=== PATIENT | female | born 1965 | race Caucasian/White ===

== ENCOUNTER 2016-03-25 12:35 | Inpatient (IN) | payer MEDICARE, BC ==
[2016-03-25] MEDS ORDERED: ACETAMINOPHEN IV (For NPO) 1,000 MG in EMPTY BAG 1 BAG IVPB STA (12:59)
[2016-03-25] MEDS ORDERED: RX INFO: IV CONTRAST WAS GIVEN 1 EACH MISC MISCELLANE PRN ×2 (13:00→13:05)
[2016-03-25] MEDS ORDERED: ONDANSETRON 4 MG/2 ML VIAL IVP STA (13:01)
[2016-03-25] MEDS ORDERED: FAMOTIDINE 20 MG/2 ML VIAL IV STA (13:01)
--- NOTE | 2016-03-25 13:05 | ED ---
General Adult HPI - General Chief complaint: Chest Pain Stated complaint: Chest Pain Time Seen by Provider: 03/25/16 12:55 Source: patient, RN notes reviewed Mode of arrival: wheelchair Limitations: no limitations - History of Present Illness Initial comments: Patient is a pleasant 51-year-old female presenting to the emergency Department with abdominal discomfort. Symptoms have progressed over the past 3 days. Patient has noticed low-grade fevers at home. Patient has had nausea with several episodes of emesis. Discomfort is mostly in the epigastric region. Patient has had similar symptoms previously associated with diverticulitis. Patient states she is now having some discomfort radiating up towards her chest. Patient states this also occurred last time with diverticulitis. - Related Data Home Medications Medication Instructions Recorded Confirmed Diazepam [Valium] 5 mg PO BID PRN 08/28/13 03/25/16 oxyCODONE-APAP 10-325MG [Percocet 1 tab PO TID PRN 02/08/14 03/25/16 10-325 mg] Cetirizine HCl [Zyrtec] 10 mg PO DAILY PRN 10/04/14 03/25/16 Fluticasone Propionate [Flonase 1 spray EA NOSTRIL DAILY PRN 10/04/14 03/25/16 Allergy Relief] cloNIDine HCL 0.3 mg PO TID 08/19/15 03/25/16 Olopatadine HCl [Patanol] 1 drop BOTH EYES BID 10/24/15 03/25/16 Vortioxetine Hydrobromide 10 mg PO DAILY 10/24/15 03/25/16 [Trintellix] Morphine Sulfate ER [Ms Contin] 60 mg PO BID 03/25/16 03/25/16 Allergies Allergy/AdvReac Type Severity Reaction Status Date / Time erythromycin base Allergy Rash/Hives Verified 03/25/16 13:14 [Erythromycin Base] Penicillins Allergy Rash/Hives Verified 03/25/16 13:14 Review of Systems ROS Statement: Those systems with pertinent positive or pertinent negative responses have been documented in the HPI. ROS Other: All systems not noted in ROS Statement are negative. Constitutional: Reports: fever Eyes: Denies: eye pain ENT: Denies: ear pain Respiratory: Denies: cough Cardiovascular: Reports: chest pain Endocrine: Denies: fatigue Gastrointestinal: Reports: abdominal pain, nausea, vomiting Genitourinary: Denies: dysuria Musculoskeletal: Denies: back pain Skin: Denies: rash Neurological: Denies: headache Psychiatric: Reports: anxiety Past Medical History Past Medical History: Cancer, Hypertension Additional Past Medical History / Comment(s): migraines, chronic back pain, hx uterine cancer, colon polyp removal, diverticulitis History of Any Multi-Drug Resistant Organisms: C-DIFF Date of last positivie culture/infection: MDRO Source:: stool Past Surgical History: Adenoidectomy, Appendectomy, Section, Cholecystectomy, Hysterectomy, Tonsillectomy Additional Past Surgical History / Comment(s): eye surgery bilateral for saliphingooophtomy Past Anesthesia/Blood Transfusion Reactions: Postoperative Nausea & Vomiting ( PONV) Past Psychological History: Anxiety, Depression, Panic Disorder, PTSD Additional Psychological History / Comment(s): Pt.'s committed suicide about 3 years ago, pt. found him and states, "I have good and bad days." Smoking Status: Former smoker Past Alcohol Use History: None Reported Additional Past Alcohol Use History / Comment(s): smoked about 9 years socially <1/2ppd Past Drug Use History: None Reported - Past Family History Father Family Medical History: Cancer Mother Family Medical History: CVA/TIA Brother(s) Family Medical History: No Reported History (Patient has 3 brothers with diagnosis of small bowel obstruction.) Sister(s) Family Medical History: No Reported History (One sister no major medical problems.) General Exam Limitations: no limitations General appearance: alert Head exam: Present: atraumatic Eye exam: Present: normal appearance, PERRL ENT exam: Present: normal oropharynx Neck exam: Present: normal inspection Respiratory exam: Present: normal lung sounds bilaterally Cardiovascular Exam: Present: regular rate, normal rhythm Expanded Peripheral pulses: 2+: Dorsalis Pedis (R), Dorsalis Pedis (L) GI/Abdominal exam: Present: soft, tenderness (Mild to moderate epigastric tenderness. Minimal left lower quadrant tenderness.), normal bowel sounds. Absent: distended, guarding, rebound, rigid, pulsatile mass Extremities exam: Present: normal inspection. Absent: pedal edema, calf tenderness Neurological exam: Present: alert Psychiatric exam: Present: anxious Skin exam: Absent: rash Course Vital Signs 03/25/16 03/25/16 03/25/16 12:46 12:56 13:46 Temperature 100.1 F H Pulse Rate 104 H 90 Pulse Rate [ 94 Emergency Room Physician ] Respiratory 24 22 20 Rate Blood Pressure 221/100 231/112 O2 Sat by Pulse 97 98 Oximetry 03/25/16 03/25/16 03/25/16 14:56 15:20 15:47 Temperature 98.3 F Pulse Rate 104 H 78 88 Pulse Rate [ Emergency Room Physician ] Respiratory 20 18 18 Rate Blood Pressure 213/117 224/100 204/112 O2 Sat by Pulse 98 97 96 Oximetry 03/25/16 16:13 Temperature Pulse Rate 97 Pulse Rate [ Emergency Room Physician ] Respiratory 16 Rate Blood Pressure 217/102 O2 Sat by Pulse 97 Oximetry EKG Findings - EKG Comments: EKG Findings:: Normal sinus rhythm at 96 with sinus arrhythmia. MN 140. QRS 78. QT 374. QTC 472. Normal axis. Normal QRS. Normal ST-T. Medical Decision Making - Medical Decision Making Patient has no source of infection and therefore does not meet sepsis criteria. Patient has continued discomfort. Patient has been vomiting and unable to take her medications. Patient likely has rebound hypertension. Patient remains hypertensive despite IV medication and transdermal Catapres. Patient will need further blood pressure control and IV fluids. Dr. Worrell been paged for admission for Dr. Jha. - Lab Data Result diagrams: 03/25/16 13:30 03/25/16 13:30 Lab Results 03/25/16 03/25/16 03/25/16 Range/Units 12:54 13:17 13:30 WBC (3.8-10.6) k/uL RBC (3.80-5.40) m/uL Hgb (11.4-16.0) gm/dL Hct (34.0-46.0) % MCV (80.0-100.0) fL MCH (25.0-35.0) pg MCHC (31.0-37.0) g/dL RDW (11.5-15.5) % Plt Count (150-450) k/uL Neutrophils % % Lymphocytes % % Monocytes % % Eosinophils % % Basophils % % Neutrophils # (1.3-7.7) k/uL Lymphocytes # (1.0-4.8) k/uL Monocytes # (0-1.0) k/uL Eosinophils # (0-0.7) k/uL Basophils # (0-0.2) k/uL PT (9.0-12.0) sec INR (<1.1) APTT (22.0-30.0) sec Sodium 147 H (137-145) mmol/L Potassium 5.2 H (3.5-5.1) mmol/L Chloride 106 (98-107) mmol/L Carbon Dioxide 21 L (22-30) mmol/L Anion Gap 20 mmol/L BUN 5 L (7-17) mg/dL Creatinine 0.78 (0.52-1.04) mg/dL Est GFR (MDRD) Af Amer >60 (>60 ml/min/1.73 sqM) Est GFR (MDRD) Non-Af >60 (>60 ml/min/1.73 sqM) Glucose 166 H (74-99) mg/dL POC Glucose (mg/dL) 155 H 165 H (75-99) mg/dL POC Glu Manufacturing Support Engineer Avi Richardson Brittany, A Plasma Lactic Acid Carlo (0.7-2.0) mmol/L Calcium 10.4 H (8.4-10.2) mg/dL Total Bilirubin 1.0 (0.2-1.3) mg/dL AST 79 H (14-36) U/L ALT 95 H (9-52) U/L Alkaline Phosphatase 113 (38-126) U/L Total Creatine Kinase (30-135) U/L CK-MB (CK-2) (0.0-2.4) ng/mL CK-MB (CK-2) Rel Index Troponin I (0.000-0.034) ng/mL Total Protein 8.5 H (6.3-8.2) g/dL Albumin 4.9 (3.5-5.0) g/dL Amylase 133 H (30-110) U/L Lipase 89 (23-300) U/L Cortisol 47 ug/dL Urine Color Urine Appearance (Clear) Urine pH (5.0-8.0) Ur Specific [place] (1.001-1.035) Urine Protein (Negative) Urine Glucose (UA) (Negative) Urine Ketones (Negative) Urine Blood (Negative) Urine Nitrate (Negative) Urine Bilirubin (Negative) Urine Urobilinogen (<2.0) mg/dL Ur Leukocyte Esterase (Negative) Urine RBC (0-5) /hpf Urine WBC (0-5) /hpf Ur Squamous Epith Cells (0-4) /hpf Hyaline Casts (0-2) /lpf Urine Mucus (None) /hpf 03/25/16 03/25/16 03/25/16 Range/Units 13:30 13:30 13:30 WBC 10.3 (3.8-10.6) k/uL RBC 5.23 (3.80-5.40) m/uL Hgb 14.8 (11.4-16.0) gm/dL Hct 46.1 H (34.0-46.0) % MCV 88.1 (80.0-100.0) fL MCH 28.2 (25.0-35.0) pg MCHC 32.1 (31.0-37.0) g/dL RDW 14.9 (11.5-15.5) % Plt Count 417 (150-450) k/uL Neutrophils % 83 % Lymphocytes % 11 % Monocytes % 4 % Eosinophils % 1 % Basophils % 1 % Neutrophils # 8.6 H (1.3-7.7) k/uL Lymphocytes # 1.1 (1.0-4.8) k/uL Monocytes # 0.4 (0-1.0) k/uL Eosinophils # 0.1 (0-0.7) k/uL Basophils # 0.1 (0-0.2) k/uL PT (9.0-12.0) sec INR (<1.1) APTT (22.0-30.0) sec Sodium (137-145) mmol/L Potassium (3.5-5.1) mmol/L Chloride (98-107) mmol/L Carbon Dioxide (22-30) mmol/L Anion Gap mmol/L BUN (7-17) mg/dL Creatinine (0.52-1.04) mg/dL Est GFR (MDRD) Af Amer (>60 ml/min/1.73 sqM) Est GFR (MDRD) Non-Af (>60 ml/min/1.73 sqM) Glucose (74-99) mg/dL POC Glucose (mg/dL) (75-99) mg/dL POC Glu Manufacturing Support Engineer ID Plasma Lactic Acid Carlo 3.4 H* (0.7-2.0) mmol/L Calcium (8.4-10.2) mg/dL Total Bilirubin (0.2-1.3) mg/dL AST (14-36) U/L ALT (9-52) U/L Alkaline Phosphatase (38-126) U/L Total Creatine Kinase 33 (30-135) U/L CK-MB (CK-2) <0.2 (0.0-2.4) ng/mL CK-MB (CK-2) Rel Index Troponin I <0.012 (0.000-0.034) ng/mL Total Protein (6.3-8.2) g/dL Albumin (3.5-5.0) g/dL Amylase (30-110) U/L Lipase (23-300) U/L Cortisol ug/dL Urine Color Urine Appearance (Clear) Urine pH (5.0-8.0) Ur Specific [place] (1.001-1.035) Urine Protein (Negative) Urine Glucose (UA) (Negative) Urine Ketones (Negative) Urine Blood (Negative) Urine Nitrate (Negative) Urine Bilirubin (Negative) Urine Urobilinogen (<2.0) mg/dL Ur Leukocyte Esterase (Negative) Urine RBC (0-5) /hpf Urine WBC (0-5) /hpf Ur Squamous Epith Cells (0-4) /hpf Hyaline Casts (0-2) /lpf Urine Mucus (None) /hpf 03/25/16 03/25/16 Range/Units 13:30 15:15 WBC (3.8-10.6) k/uL RBC (3.80-5.40) m/uL Hgb (11.4-16.0) gm/dL Hct (34.0-46.0) % MCV (80.0-100.0) fL MCH (25.0-35.0) pg MCHC (31.0-37.0) g/dL RDW (11.5-15.5) % Plt Count (150-450) k/uL Neutrophils % % Lymphocytes % % Monocytes % % Eosinophils % % Basophils % % Neutrophils # (1.3-7.7) k/uL Lymphocytes # (1.0-4.8) k/uL Monocytes # (0-1.0) k/uL Eosinophils # (0-0.7) k/uL Basophils # (0-0.2) k/uL PT 10.7 (9.0-12.0) sec INR 1.1 (<1.1) APTT 21.0 L (22.0-30.0) sec Sodium (137-145) mmol/L Potassium (3.5-5.1) mmol/L Chloride (98-107) mmol/L Carbon Dioxide (22-30) mmol/L Anion Gap mmol/L BUN (7-17) mg/dL Creatinine (0.52-1.04) mg/dL Est GFR (MDRD) Af Amer (>60 ml/min/1.73 sqM) Est GFR (MDRD) Non-Af (>60 ml/min/1.73 sqM) Glucose (74-99) mg/dL POC Glucose (mg/dL) (75-99) mg/dL POC Glu Manufacturing Support Engineer ID Plasma Lactic Acid Carlo (0.7-2.0) mmol/L Calcium (8.4-10.2) mg/dL Total Bilirubin (0.2-1.3) mg/dL AST (14-36) U/L ALT (9-52) U/L Alkaline Phosphatase (38-126) U/L Total Creatine Kinase (30-135) U/L CK-MB (CK-2) (0.0-2.4) ng/mL CK-MB (CK-2) Rel Index Troponin I (0.000-0.034) ng/mL Total Protein (6.3-8.2) g/dL Albumin (3.5-5.0) g/dL Amylase (30-110) U/L Lipase (23-300) U/L Cortisol ug/dL Urine Color Yellow Urine Appearance Clear (Clear) Urine pH 7.5 (5.0-8.0) Ur Specific [place] 1.036 H (1.001-1.035) Urine Protein 2+ H (Negative) Urine Glucose (UA) 1+ H (Negative) Urine Ketones 1+ H (Negative) Urine Blood Negative (Negative) Urine Nitrate Negative (Negative) Urine Bilirubin Negative (Negative) Urine Urobilinogen <2.0 (<2.0) mg/dL Ur Leukocyte Esterase Negative (Negative) Urine RBC 1 (0-5) /hpf Urine WBC 1 (0-5) /hpf Ur Squamous Epith Cells 1 (0-4) /hpf Hyaline Casts 4 H (0-2) /lpf Urine Mucus Rare H (None) /hpf Critical Care Time Critical Care Time: Yes Total Critical Care Time: 32 Disposition Clinical Impression: Abdominal pain, Intractable vomiting, Fever, Hypertensive urgency Disposition: ADMITTED IP TO THIS HOSP
[2016-03-25 13:22] LABS: Glucose,Whole Blood 165 mg/dL (75-99)
[2016-03-25] MEDS: SODIUM CHLORIDE 0.9% 500 ML IV SCH ×2 (13:22→14:58)
[2016-03-25] MEDS: MORPHINE SULFATE 4 MG/ML SYRINGE IV STA ×2 (13:27→15:22)
[2016-03-25 13:43] LABS: Basophils # (A) 0.1 k/uL (0-0.2); Basophils % (A) 1 %; CH 29.5; CHCM 33.7; Eosinophils # (A) 0.1 k/uL (0-0.7); Eosinophils % (A) 1 %; HCT 46.1 % (34.0-46.0); HDW 3.04; HGB 14.8 gm/dL (11.4-16.0); Luc # (Auto) 0.08; Luc % (Auto) 1; Lymphocytes # (A) 1.1 k/uL (1.0-4.8); Lymphocytes % (A) 11 %; MCH 28.2 pg (25.0-35.0); MCHC 32.1 g/dL (31.0-37.0); MCV 88.1 fL (80.0-100.0); Mean Platelet Volume 7.6; Monocytes # (A) 0.4 k/uL (0-1.0); Monocytes % (A) 4 %; Neutrophils # (A) 8.6 k/uL (1.3-7.7); Neutrophils % (A) 83 %; RBC 5.23 m/uL (3.80-5.40); RDW 14.9 % (11.5-15.5); WBC 10.3 k/uL (3.8-10.6); WBC (Perox) 9.76
[2016-03-25] MEDS ORDERED: LABETALOL SYRINGE 5 MG/ML IVP STA ×2 (13:46→16:15)
[2016-03-25 14:00] LABS: INR 1.1 (<1.1); Prothrombin Time 10.7 sec (9.0-12.0)
[2016-03-25] MEDS ORDERED: cloNIDine 0.3 MG/24HR PATCH 1 PATCH PATCH TRANSDERM SCH (14:00)
[2016-03-25 14:13] LABS: Creatine Kinase 33 U/L (30-135)
[2016-03-25 14:18] LABS: ALT 95 U/L (9-52); AST 79 U/L (14-36); Alkaline Phosphatase 113 U/L (38-126); Amylase 133 U/L (30-110); Anion Gap 20 mmol/L; Blood Urea Nitrogen 5 mg/dL (7-17); Calcium 10.4 mg/dL (8.4-10.2); Carbon Dioxide 21 mmol/L (22-30); Chloride 106 mmol/L (98-107); Glucose 166 mg/dL (74-99); Non-African American GFR(MDRD) >60 (>60 ml/min/1.73 sqM); Sodium 147 mmol/L (137-145); Total Protein 8.5 g/dL (6.3-8.2)
[2016-03-25 14:25] LABS: Creatine Kinase MB <0.2 ng/mL (0.0-2.4); Troponin I <0.012 ng/mL (0.000-0.034)
[2016-03-25 14:26] LABS: Potassium 5.2 mmol/L (3.5-5.1)
--- NOTE | 2016-03-25 14:58 | CT ---
EXAMINATION TYPE: CT angio chest DATE OF EXAM: 03/25/2016 2:45 PM COMPARISON: Previous study dated 02/08/2014. HISTORY: SOB, diverticulitis CT DLP: 2355 mGycm Automated exposure control for dose reduction was used. CONTRAST: CTA scan of the thorax is performed with IV Contrast, patient injected with 100 ml mL of Omnipaque 35 0, pulmonary embolism protocol. . FINDINGS: There is some minimal scarring or atelectasis at the left lung base as well as the left lingula. Visu alized portions of the lungs are otherwise unremarkable. There is no significant axillary or internal mammary adenopathy. There is a stable, 2.6 cm right para tracheal lymph node as well as some smaller mediastinal lymph nodes, unchanged from previous. Has dev eloped a 7.3 mm right hilar lymph node. There is no pleural or pericardial fluid. The heart is mildly enlarged. There is no evidence of pulmonary embolus. There is a small hiatal hernia. There is hypertrophic spondylosis within the spine. IMPRESSION: 1. THIS EXAMINATION IS NEGATIVE FOR PULMONARY EMBOLUS. 2. STABLE MEDIASTINAL ADENOPATHY. 3. SMALL, 7.3 MM RIGHT HILAR LYMPH NODE WHICH IS A NEW FINDING. 4. DEGENERATIVE CHANGES WITHIN THE SPINE. 5. MILD CARDIOMEGALY. 6. SMALL HIATAL HERNIA.
[2016-03-25] MEDS: METOCLOPRAMIDE 5 MG/ML 2 ML VIAL IVP STA (15:00)
--- NOTE | 2016-03-25 15:02 | CT ---
EXAMINATION TYPE: CT abdomen pelvis w con DATE OF EXAM: 03/25/2016 2:44 PM COMPARISON: Prior CT abdomen pelvis 22 January 2016 HISTORY: SOB, diverticulitis CT DLP: 2355 mGycm Automated exposure control for dose reduction was used. TECHNIQUE: Helical acquisition of images from the lung bases through the pelvis have been completed. CONTRAST: Performed without Oral Contrast and with IV Contrast, patient injected with 100 mL of Omnipaque 350. FINDINGS: LUNG BASES: No significant abnormality is appreciated. AORTA: No significant abnormality is appreciated. LIVER/GB: The liver shows low attenuation likely due to fatty infiltration, patient is post cholecyst ectomy. PANCREAS: No significant abnormality is seen. SPLEEN: No significant abnormality is seen. ADRENALS: No significant abnormality is seen. KIDNEYS: No significant abnormality is seen. Renal vein collar is present. REPRODUCTIVE ORGANS: Uterus and adnexal structures are absent. BOWEL: No evident obstruction. Diverticular changes associated with the sigmoid colon. Patient is po st appendectomy. There is a small umbilical hernia containing fat. FREE AIR: No Free Air visible ASCITES: None visible. PELVIC ADENOPATHY: None visualized. RETROPERITONEAL ADENOPATHY: No Retroperitoneal Adenopathy visible. URINARY BLADDER: No significant abnormality is seen. OSSEOUS STRUCTURES: Degenerative disc changes in the visualized spine. There is some associated face t arthropathy. IMPRESSION: DIVERTICULOSIS. FINDINGS IN THE LIVER IS DESCRIBED, POSTOP CHANGE.
[2016-03-25 15:06] LABS: Glucose,Whole Blood 155 mg/dL (75-99)
[2016-03-25] MEDS ORDERED: SODIUM CHLORIDE 0.9% 1,000 ML IV STA (15:17)
[2016-03-25 15:32] LABS: Appearance,Urine Clear (Clear); Bilirubin,Urine Negative (Negative); Glucose,Urine (UA) 1+ (Negative); Ketones,Urine 1+ (Negative); Leukocyte Esterase,Urine Negative (Negative); Mucus,Urine Rare /hpf; Nitrite,Urine Negative (Negative); PH, Urine 7.5 (5.0-8.0); Particle Count 1616; Protein,Urine 2+ (Negative); RBC,Urine 1 /hpf (0-5); Specific Gravity,Urine 1.036 (1.001-1.035); Squamous Epithelial Cell,Urine 1 /hpf (0-4); UA Billing (MACRO vs. MICRO) MICRO; Urobilinogen,Urine <2.0 mg/dL (<2.0); WBC,Urine 1 /hpf (0-5)
[2016-03-25] MEDS ORDERED: NALOXONE 0.4 MG/ML 1 ML VIAL IV PRN (16:46)
[2016-03-25] MEDS ORDERED: ENALAPRILAT 1.25 MG/ML 1 ML VIAL IVP STA (16:48)
[2016-03-25 17:56] LABS: Creatine Kinase 28 U/L (30-135)
[2016-03-25 18:06] LABS: Creatine Kinase MB <0.2 ng/mL (0.0-2.4); Troponin I <0.012 ng/mL (0.000-0.034)
[2016-03-25] MEDS: MORPHINE SULFATE 4 MG/ML SYRINGE IV PRN ×2 (18:16→22:15)
[2016-03-25] MEDS: PANTOPRAZOLE 40 MG/10 ML VIAL IV SCH (18:18)
[2016-03-25] MEDS ORDERED: hydrALAZINE HCL 20 MG/ML 1 ML VIAL IVP STA (18:22)
[2016-03-25] MEDS: SODIUM CHLORIDE 0.9% 1,000 ML IV SCH (20:49)
[2016-03-25] MEDS: ONDANSETRON 4 MG/2 ML VIAL IVP PRN (21:00)
[2016-03-26] MEDS: METOCLOPRAMIDE 5 MG/ML 2 ML VIAL IVP STA (02:40)
[2016-03-26] MEDS: MORPHINE SULFATE 4 MG/ML SYRINGE IV PRN ×2 (02:41→08:30)
[2016-03-26 03:03] LABS: Creatine Kinase 39 U/L (30-135)
[2016-03-26 03:16] LABS: Creatine Kinase MB 0.3 ng/mL (0.0-2.4); Troponin I <0.012 ng/mL (0.000-0.034)
[2016-03-26] MEDS: SODIUM CHLORIDE 0.9% 1,000 ML IV SCH ×4 (03:28→23:14)
[2016-03-26] MEDS ORDERED: SODIUM CHLORIDE 0.9% 1,000 ML IV ONE (04:33)
[2016-03-26] MEDS ORDERED: IBUPROFEN 400 MG TAB PO PRN (04:34)
[2016-03-26] MEDS: ONDANSETRON 4 MG/2 ML VIAL IVP PRN (06:07)
[2016-03-26] MEDS: PANTOPRAZOLE 40 MG/10 ML VIAL IV SCH ×2 (08:16→10:38)
[2016-03-26] MEDS: ENALAPRILAT 1.25 MG/ML 1 ML VIAL IVP PRN (08:30)
[2016-03-26] MEDS: HYDROmorphone 1 MG/ML 1 ML SYRINGE IVP PRN ×4 (10:36→23:32)
--- NOTE | 2016-03-26 11:06 | P.GSCN ---
History of Present Illness Consult date: 03/26/16 Reason for Consult: Epigastric abdominal pain History of present illness: This a 49-year-old female well-known to myself. Patient presents emergency room with complaints of several day history of nausea vomiting and epigastric pain. She has a known history of diverticulitis. The patient states her pain is mainly in the epigastric area. She rates it as a 3-4 out of -10. Review of Systems - Constitutional Reports as per HPI Past Medical History Past Medical History: Cancer, Hypertension Additional Past Medical History / Comment(s): migraines, chronic back pain, hx uterine cancer, colon polyp removal, diverticulitis History of Any Multi-Drug Resistant Organisms: C-DIFF Year Discovered:: MDRO Source:: stool Past Surgical History: Adenoidectomy, Appendectomy, Section, Cholecystectomy, Hysterectomy, Tonsillectomy Additional Past Surgical History / Comment(s): eye surgery bilateral for saliphingooophtomy. lymph node removed breast it was benign Past Anesthesia/Blood Transfusion Reactions: Postoperative Nausea & Vomiting ( PONV) Past Psychological History: Anxiety, Depression, Panic Disorder, PTSD Additional Psychological History / Comment(s): Pt.'s committed suicide about 3 years ago, pt. found him and states, "I have good and bad days." Smoking Status: Former smoker Past Alcohol Use History: None Reported Additional Past Alcohol Use History / Comment(s): smoked about 9 years socially <1/2ppd Past Drug Use History: None Reported - Past Family History Father Family Medical History: Cancer Mother Family Medical History: CVA/TIA Brother(s) Family Medical History: No Reported History (Patient has 3 brothers with diagnosis of small bowel obstruction.) Sister(s) Family Medical History: No Reported History (One sister no major medical problems.) Medications and Allergies Home Medications Medication Instructions Recorded Confirmed Type Diazepam [Valium] 5 mg PO BID PRN 08/28/13 03/25/16 History oxyCODONE-APAP 10-325MG [Percocet 1 tab PO TID PRN 02/08/14 03/25/16 History 10-325 mg] Cetirizine HCl [Zyrtec] 10 mg PO DAILY PRN 10/04/14 03/25/16 History Fluticasone Propionate [Flonase 1 spray EA NOSTRIL DAILY PRN 10/04/14 03/25/16 History Allergy Relief] cloNIDine HCL 0.3 mg PO TID 08/19/15 03/25/16 History Olopatadine HCl [Patanol] 1 drop BOTH EYES BID 10/24/15 03/25/16 History Vortioxetine Hydrobromide 10 mg PO DAILY 10/24/15 03/25/16 History [Trintellix] Morphine Sulfate ER [Ms Contin] 60 mg PO BID 03/25/16 03/25/16 History Allergies Allergy/AdvReac Type Severity Reaction Status Date / Time erythromycin base Allergy Rash/Hives Verified 03/25/16 13:14 [Erythromycin Base] Penicillins Allergy Rash/Hives Verified 03/25/16 13:14 Surgical - Exam Vital Signs Temp Pulse Resp BP Pulse Ox 100.1 F H 104 H 24 221/100 97 03/25/16 12:46 03/25/16 12:46 03/25/16 12:46 03/25/16 12:46 03/25/16 12:46 - General well developed, no distress - Eyes PERRL - ENT normal pinna - Neck no masses - Respiratory normal expansion - Cardiovascular Rhythm: regular - Abdomen Mild epigastric tenderness. There is no rebound or guarding. Abdomen: soft Results - Labs 03/25/16 13:30 03/25/16 13:30 Abnormal Lab Results - Last 24 Hours (Table) 03/25/16 03/25/16 Range/Units 17:11 17:11 Plasma Lactic Acid Carlo 3.2 H* (0.7-2.0) mmol/L Total Creatine Kinase 28 L (30-135) U/L - Imaging CT scan - abdomen: report reviewed (CT scans reviewed. Patient status post cholecystectomy. There is some mild fatty infiltration of liver. There is also diverticulosis. There is no evidence of any abscess or inflammatory changes in the epigastric area.) Assessment and Plan Plan: Epigastric tenderness. The etiology her pain is unclear at this time. She will start on clear liquids. If her pain worsens or does not resolve we will perform EGD.
[2016-03-26] MEDS: METOCLOPRAMIDE 5 MG/ML 2 ML VIAL IVP SCH ×3 (11:57→23:13)
--- NOTE | 2016-03-26 15:25 | HP ---
DATE OF ADMISSION: This is Sandra Devine [facility] dictating for Dr. Gillian Worrell. PRINCIPAL DIAGNOSIS: Intractable nausea and vomiting. HISTORY OF PRESENT ILLNESS: This is a 51-year-old female patient who presented to the emergency department secondary to intractable nausea and vomiting with epigastric pain. The patient states that the epigastric pain started Monday. She began vomiting and has not been able to keep any food or fluids down. She is unable to take her medication as well. Her primary care physician is Dr. Montenegro and she will be admitted to Dr. Gillian Worrell's service. She denies any diarrhea. She has not been vomiting blood. She has seen Dr. Harvey in the past and in January underwent colonoscopy and EGD. She states that he found some evidence of polyps at that time. Currently she is receiving antiemetics and IV pain medication. She is comfortable. She is quite hypertensive and will be receiving IV antihypertensive medication as well. Dr. Harvey has been consulted and she will be transferred to the medical unit when there is bed available. REVIEW OF SYSTEMS: Patient denies seizures, syncope, or loss of consciousness. Denies diplopia or visual disturbances. Denies dysphagia. Denies shortness breath, cough or wheeze. Denies chest pain, angina, or palpitations. States abdominal pain in the epigastric area with nausea, vomiting. No diarrhea or constipation. Denies dysuria or urinary retention. Denies fever, chills. PAST MEDICAL HISTORY: Hypertension, chronic back pain, cervical cancer, PAST SURGICAL HISTORY: Total abdominal hysterectomy with bilateral salpingo-oophorectomy, appendectomy, cholecystectomy, colonoscopy and EGD. FAMILY HISTORY: Mother is alive and well, has multiple medical problems. Father from cancer, unknown kind. Two brothers with abdominal problems and 2 children without any medical problems. SOCIAL HISTORY: Patient is a nonsmoker. Denies EtOH or illicit drug use. ALLERGIES: ERYTHROMYCIN and PENICILLIN. HOME MEDICATIONS: 1. Percocet 1 tab t.i.d. p.r.n. 2. Clonidine 0.3 mg t.i.d. 3. Trintellix 10 mg daily. 4. Patanol one drop both eyes b.i.d. 5. MS Contin ER 60 mg b.i.d. 6. Flonase one spray daily as needed. 7. Valium 5 mg b.i.d. p.r.n. 8. Zyrtec 10 mg daily as needed. PHYSICAL EXAMINATION: VITAL SIGNS: Temperature is 99.3, heart rate 92, respiratory rate 16, blood pressure 187/87, pulse oximetry is 96% on room air. GENERAL: The patient is seen lying in bed in the emergency department in no acute distress. HEENT: Head is normocephalic, atraumatic. Pupils equal. Conjunctivae clear. NECK: Supple, no JVD. LUNGS: Clear to auscultation. No wheeze, rales, rhonchi appreciated. HEART: Regular rate and rhythm. S1, S2 are heard. No murmur. ABDOMEN: Soft, nontender, obese, nondistended. Bowel sounds are positive. EXTREMITIES: No lower extremity edema is noted. NEURO: Patient is alert and oriented x3. Speech is clear, interactive and appropriate. No tremors noted. LABS: Sodium is 147, potassium is 5.2, BUN 5, creatinine 0.78. WBC count is 10.3, hemoglobin 14.8, platelet count is 417. Troponins are negative x2. AST is 79, ALT is 95. Amylase is 133. Lipase is an 89. Urinalysis is negative. Influenza A and B is negative. DIAGNOSTIC TESTS: CAT scan of the abdomen and pelvis shows diverticulosis with fatty infiltrate of the liver. CAT scan of the chest was negative for pulmonary embolism. EKG shows a normal sinus mechanism IMPRESSION: 1. Intractable nausea and vomiting. Continue with n.p.o. status. A surgical consult has been placed. Continue with IV fluid resuscitation, antiemetics and pain medication as needed 2. Hypertensive urgency. Continue with Catapres patch, IV Vasotec p.r.n. 3. Chronic lower back pain. Continue with morphine IV as needed. 4. Gastrointestinal prophylaxis with Pepcid and Protonix. 5. Deep venous thrombosis prophylaxis with subcutaneous heparin. The patient will be admitted to the medical unit once bed becomes available with consult to surgical services. We will continue to follow her closely.
[2016-03-26] MEDS ORDERED: DIAZEPAM 5 MG TAB PO PRN (15:29)
[2016-03-26] MEDS ORDERED: LORATADINE 10 MG TAB PO PRN (15:29)
[2016-03-26] MEDS ORDERED: oxyCODONE-APAP 10-325MG 1 EACH TAB PO PRN (15:29)
[2016-03-26] MEDS ORDERED: FLUTICASONE 50MCG/SPRAY NASAL 16GM EA NOSTRIL PRN (15:29)
[2016-03-26] MEDS: HEPARIN SODIUM,PORCINE 5,000 UNIT/ML 1 ML VIAL SQ SCH (20:15)
[2016-03-26] MEDS: KETOTIFEN 0.025% OPHTH DROPS 5 ML BTL BOTH EYES SCH (20:17)
[2016-03-27] MEDS: HYDROmorphone 1 MG/ML 1 ML SYRINGE IVP PRN ×5 (04:06→20:37)
[2016-03-27] MEDS: ENALAPRILAT 1.25 MG/ML 1 ML VIAL IVP PRN ×2 (04:17→11:22)
[2016-03-27 06:31] LABS: Basophils % (A) 0 %; CH 28.9; CHCM 32.5; Eosinophils % (A) 0 %; HDW 2.89; HGB 12.4 gm/dL (11.4-16.0); Luc # (Auto) 0.16; Luc % (Auto) 2; Lymphocytes # (A) 1.6 k/uL (1.0-4.8); Lymphocytes % (A) 20 %; MCH 29.1 pg (25.0-35.0); MCHC 32.5 g/dL (31.0-37.0); MCV 89.4 fL (80.0-100.0); Mean Platelet Volume 6.6; Monocytes # (A) 0.4 k/uL (0-1.0); Monocytes % (A) 5 %; Neutrophils # (A) 5.9 k/uL (1.3-7.7); Neutrophils % (A) 73 %; RBC 4.25 m/uL (3.80-5.40); RDW 14.9 % (11.5-15.5); WBC 8.2 k/uL (3.8-10.6); WBC (Perox) 8.56
[2016-03-27 06:41] LABS: Anion Gap 9 mmol/L; Blood Urea Nitrogen 10 mg/dL (7-17); Calcium 8.9 mg/dL (8.4-10.2); Carbon Dioxide 27 mmol/L (22-30); Chloride 107 mmol/L (98-107); Glucose 119 mg/dL (74-99); Non-African American GFR(MDRD) >60 (>60 ml/min/1.73 sqM); Potassium 3.5 mmol/L (3.5-5.1); Sodium 143 mmol/L (137-145)
[2016-03-27] MEDS: METOCLOPRAMIDE 5 MG/ML 2 ML VIAL IVP SCH ×3 (07:38→17:49)
[2016-03-27] MEDS: PANTOPRAZOLE 40 MG/10 ML VIAL IV SCH (08:36)
[2016-03-27] MEDS: KETOTIFEN 0.025% OPHTH DROPS 5 ML BTL BOTH EYES SCH ×2 (08:37→20:37)
[2016-03-27] MEDS: HEPARIN SODIUM,PORCINE 5,000 UNIT/ML 1 ML VIAL SQ SCH ×2 (08:37→20:36)
[2016-03-27 09:12] LABS: Total Bilirubin 0.5 mg/dL (0.2-1.3)
--- NOTE | 2016-03-27 10:09 | P.PN ---
Progress Note - Text The patient is resting comfortably in her bed. She still describes significant epigastric pain. On exam her vital signs appear stable. Her abdomen soft there is minimal tenderness in epigastric area. Patient was scheduled for EGD tomorrow. We will evaluate possible gastritis or peptic ulcer disease.
--- NOTE | 2016-03-27 13:01 | PN ---
HISTORY OF PRESENT ILLNESS: This is a 51-year-old female patient presented to the emergency department with intractable nausea, vomiting and epigastric pain. The patient was given antiemetics and pain medication, IV fluids and admitted to the medical unit. Surgical consultation was obtained and the patient may need an EGD if her symptoms do not improve. As of this morning, she still is feeling nauseated. She took in a little bit of clear liquids this morning and still has quite a bit of epigastric tenderness. She is seen sitting up in bed. She is in no acute distress. Pain medication is adequate. PHYSICAL EXAMINATION: VITAL SIGNS: Temperature is 97.8, heart rate 100, respiratory rate 16, blood pressure is 167/99, pulse oximetry is 94% on room air. GENERAL: The patient is seen lying in bed in no acute distress. LUNGS: Clear to auscultation. No wheeze, rales, or rhonchi appreciated. HEART: Regular rate and rhythm. No murmur. ABDOMEN: Soft, tender to the epigastric area with some slight tenderness to the right upper and lower quadrant, nondistended, obese. Bowel sounds are positive. EXTREMITIES: No lower extremity edema is noted. Patient is alert and oriented x3. LABS: Sodium is 143, potassium 3.5, BUN is 10, creatinine 0.62. WBC count is 8.2, hemoglobin 12.4, platelet count is 299. IMPRESSION: 1. Intractable nausea and vomiting with epigastric pain. Continue with clear liquids. Surgical consult was obtained and plan is for EGD if symptoms do not improve. Continue with IV fluids antiemetics and pain medication as needed. 2. Hypertensive urgency. Continue with Catapres patch and IV Vasotec p.r.n. Her blood pressure has improved. 3. Chronic low back pain. Continue with morphine as needed and muscle relaxers. 4. Gastrointestinal prophylaxis with Pepcid and Protonix. 5. Deep venous thrombosis prophylaxis with subcutaneous heparin. I performed a history and physical examination of this patient and discussed the same with the dictator. I agree with the dictator's note. Any additional findings/opinions, etc. will be noted.
[2016-03-27] MEDS: SODIUM CHLORIDE 0.9% 1,000 ML IV SCH ×2 (13:09→17:51)
[2016-03-27 13:33] LABS: Hemoglobin A1C 6.2 % (4.2-6.1)
[2016-03-27] MEDS: ONDANSETRON 4 MG/2 ML VIAL IVP PRN (16:20)
[2016-03-28] MEDS: SODIUM CHLORIDE 0.9% 1,000 ML IV SCH ×3 (00:58→17:03)
[2016-03-28] MEDS: HYDROmorphone 1 MG/ML 1 ML SYRINGE IVP PRN ×6 (00:59→21:01)
[2016-03-28] MEDS: METOCLOPRAMIDE 5 MG/ML 2 ML VIAL IVP SCH ×5 (00:59→23:17)
[2016-03-28] MEDS: PANTOPRAZOLE 40 MG/10 ML VIAL IV SCH (08:29)
[2016-03-28] MEDS: HEPARIN SODIUM,PORCINE 5,000 UNIT/ML 1 ML VIAL SQ SCH ×2 (08:29→21:04)
[2016-03-28] MEDS: KETOTIFEN 0.025% OPHTH DROPS 5 ML BTL BOTH EYES SCH ×2 (09:11→21:04)
[2016-03-28] MEDS ORDERED: IV FLUID CONTINUATION 1,000 ML IV ONE (11:58)
[2016-03-28] MEDS ORDERED: LIDOCAINE 1% INJ 10MG/ML (20 ML MDV) ONE (11:59)
[2016-03-28] MEDS ORDERED: PROPOFOL 10 MG/ML 20 ML VIAL IV ONE (11:59)
--- NOTE | 2016-03-28 12:09 | P.OP ---
Date of Procedure: 03/28/16 Preoperative Diagnosis: Epigastric pain Postoperative Diagnosis: Mild antral gastritis Small hiatal hernia Mild esophagitis Procedure(s) Performed: EGD Anesthesia: MAC Surgeon: Buster Harvey Pathology: other (Antrum, esophagus) Condition: stable Disposition: PACU Description of Procedure: The patient's placed on the endoscopy table in the lateral position. She received IV sedation. The gastroscope some placed oropharynx passed in the esophagus and stomach. Scope was then placed through the pylorus. The first and second portion of the duodenum appeared normal. Scope was then brought back the antrum this. Mildly inflamed. A biopsies performed. The scope was retroflexed and remainder of the stomach appeared normal. There was a small sliding hiatal hernia. The GE junction was at 39 cm. The distal esophagus appeared mildly inflamed a biopsies performed. The proximal esophagus appeared normal. Scope was withdrawn for patient.
[2016-03-28] MEDS: ENALAPRILAT 1.25 MG/ML 1 ML VIAL IVP PRN (12:42)
--- NOTE | 2016-03-28 15:07 | P.PN ---
Subjective This is a 51-year-old female. Her primary care physician is Dr. Gonsalez. She has a past medical history of hypertension, chronic back pain, cervical cancer. She presented to [facility] emergency center complaining of intractable nausea and vomiting with epigastric pain. It started on Monday she began vomiting on . She has not been able to keep any food or fluids down and she is unable to keep her medications down. She denies having any diarrhea, vomiting blood. She has seen Dr. Esquivel in the past in January underwent colonoscopy and EGD. There is some evidence of polyps at that time. Patient was admitted to the [facility] floor and started on IV fluids, antiemetics and IV pain medications and consult was obtained with Dr. Harvey. Patient is status post EGD which found mild antral gastritis, small hiatal hernia, mild esophagitis. Objective - Vital Signs Vital signs: Vital Signs Temp 97.5 F L 03/28/16 11:41 Pulse 96 03/28/16 13:25 Resp 16 03/28/16 11:41 BP 164/86 03/28/16 14:19 Pulse Ox 146 H 03/28/16 11:41 Intake & Output 03/27/16 03/28/16 03/28/16 18:59 06:59 18:59 Intake Total 240 100 Balance 240 100 Weight 105.233 kg Intake: IV 100 Oral 240 Other: Voiding Method Toilet Toilet # Voids 1 2 - Exam Gen: This is a 51-year-old female. She is sitting up in bed and appears to be in no acute distress. HEENT: Head is atraumatic, normocephalic. Pupils equal, round. Sclerae is anicteric. NECK: Supple. No JVD. No lymphadenopathy. No thyromegaly. LUNGS: Clear to auscultation. No wheezes or rhonchi. No intercostal retractions. HEART: Regular rate and rhythm. No murmur. ABDOMEN: Soft. Bowel sounds are present. No masses. No tenderness. EXTREMITIES: No pedal edema. No calf tenderness. NEUROLOGICAL: Patient is awake, alert and oriented x3. Cranial nerves 2 through 12 are grossly intact. - Labs CBC & Chem 7: 03/27/16 05:53 03/27/16 05:53 Assessment and Plan Plan: 1. Acute intractable nausea and vomiting. Patient has been nothing by mouth, IV fluid resuscitation, antibiotics and pain medication. Consult with Dr. Esquivel as above. Patient is status post EGD. 2. Hypertensive urgency. Continue Catapres patch, IV Vasotec. 3. Chronic low back pain with lumbar disc disease. Continue Percocet or IV morphine as needed. 4. History of migraines stable. 5. History of uterine cancer with prior history of DAGOBERTO/BSO stable GI prophylaxis and DVT prophylaxis provided with Protonix, heparin subcu Discharge plan: Return home Impression and plan of care have been directed as dictated by the signing physician. Libby Aguirre nurse practitioner acting as scribe for signing physician. Time with Patient: Greater than 30
[2016-03-29] MEDS: HYDROmorphone 1 MG/ML 1 ML SYRINGE IVP PRN ×2 (01:52→05:45)
[2016-03-29] MEDS: SODIUM CHLORIDE 0.9% 1,000 ML IV SCH ×3 (01:55→16:19)
[2016-03-29] MEDS: METOCLOPRAMIDE 5 MG/ML 2 ML VIAL IVP SCH ×2 (05:45→12:10)
[2016-03-29 07:34] VITALS: RESP 19
[2016-03-29] MEDS: NON-FORMULARY DRUG (Vortioxetine Hydrobromide [Trintellix] 10 MG) PO SCH ×2 (07:40→07:42)
[2016-03-29] MEDS: PANTOPRAZOLE 40 MG/10 ML VIAL IV SCH (08:07)
[2016-03-29] MEDS: HEPARIN SODIUM,PORCINE 5,000 UNIT/ML 1 ML VIAL SQ SCH (08:07)
[2016-03-29] MEDS: KETOTIFEN 0.025% OPHTH DROPS 5 ML BTL BOTH EYES SCH (08:08)
[2016-03-29] MEDS: oxyCODONE-APAP 10-325MG 1 EACH TAB PO PRN ×2 (09:28→14:22)
--- NOTE | 2016-03-29 11:57 | P.PN ---
Subjective Principal diagnosis: Mild antral gastritis; small hiatal hernia Patient is a 51-year-old white female admitted with epigastric pain status post EGD with findings of mild antral gastritis, small hiatal hernia, and mild esophagitis. Upon examination, patient states her epigastric pain has improved. Patient complains of chronic back pain. Denies nausea or vomiting. Tolerating a clear liquid diet. Passing flatus with loose stools. Afebrile. WBC 8.2. Hemoglobin 12.4. Objective - Vital Signs Vital signs: Vital Signs Temp 97.5 F L 03/29/16 07:00 Pulse 92 03/29/16 08:00 Resp 19 03/29/16 08:00 BP 178/105 03/29/16 07:00 Pulse Ox 95 03/29/16 07:00 Intake & Output 03/28/16 03/29/16 03/29/16 18:59 06:59 18:59 Intake Total 100 680 Balance 100 680 Weight 105.687 kg Intake: IV 100 Oral 680 Other: Voiding Method Toilet Toilet # Voids 2 1 - Exam GENERAL: Pt awake and alert, well-appearing, well-nourished, and in no acute distress. HEART: Heart S1, S2, no S3 or S4. No murmurs, rubs or gallops. ABDOMEN: Soft, obese, mild epigastric tenderness, nondistended, normoactive bowel sounds. No guarding, no rebound. No masses or organomegaly appreciated. NEUROLOGICAL: Pt oriented x 3. - Labs CBC & Chem 7: 03/27/16 05:53 03/27/16 05:53 Assessment and Plan Plan: Impression: Intractable nausea, vomiting, and epigastric pain, present on admission, improved, status post EGD on 03/28/2016 with evidence of mild antral gastritis, small hiatal hernia, and mild esophagitis. Plan: Advance diet to full liquids. Continue Protonix. Continue supportive treatment and pain management. Continue to follow with medical team. The above impression and plan have been discussed and directed by Dr. Harvey. Babita DYSON acting as scribe for Dr. Harvey.
[2016-03-29 13:51] VITALS: BMI 37.5
[2016-03-29 15:24] VITALS: BP 166/79; PULSE 78; TEMP 96.3
--- NOTE | 2016-03-29 16:13 | P.DS ---
Providers Date of admission: 03/25/16 16:46 Expected date of discharge: 03/29/16 Attending physician: Gillian Worrell Consults: 03/26/16 09:01 Consult Physician Urgent Consulting Provider: Buster Harvey Consult Reason/Comments: Abdominal pain, current patient Do you want consulting provider notified?: Yes Primary care physician: Constantine Montenegro [facility] Course: This is a 51-year-old female. Her primary care physician is Dr. Gonsalez. She has a past medical history of hypertension, chronic back pain, cervical cancer. She presented to [facility] emergency center complaining of intractable nausea and vomiting with epigastric pain. It started on Monday she began vomiting on . She has not been able to keep any food or fluids down and she is unable to keep her medications down. She denies having any diarrhea, vomiting blood. She has seen Dr. Esquivel in the past in January underwent colonoscopy and EGD. There is some evidence of polyps at that time. Patient was admitted to the [facility] floor and started on IV fluids, antiemetics and IV pain medications and consult was obtained with Dr. Harvey. Patient is status post EGD which found mild antral gastritis, small hiatal hernia, mild esophagitis. 03/29: Patient underwent EGD that shows mild antral gastritis and small hiatal hernia, mild esophagitis. Patient states she did have some nausea this morning but this is resolved. Patient will be discharged home today in stable condition. Discharge diagnoses: 1. Acute intractable nausea and vomiting possibly related to pain medications. Patient has been instructed to follow-up with her primary care physician and will get changes in her medications including patch for pain control. 2. Hypertensive urgency. 3. Chronic low back pain with lumbar disc disease. 4. History of migraines stable. 5. History of uterine cancer with prior history of DAGOBERTO/BSO stable Discharge plan: Return home Impression and plan of care have been directed as dictated by the signing physician. Libby Aguirre nurse practitioner acting as scribe for signing physician. Cc: Dr. Constantine Montenegro Patient Condition at Discharge: Good Plan - Discharge Summary New Discharge Prescriptions: Pantoprazole Sodium [Protonix] 40 mg PO DAILY #60 tablet. Discharge Medication List Diazepam [Valium] 5 mg PO BID PRN 08/28/13 [History] oxyCODONE-APAP 10-325MG [Percocet 10-325 mg] 1 tab PO TID PRN 02/08/14 [History] Cetirizine HCl [Zyrtec] 10 mg PO DAILY PRN 10/04/14 [History] Fluticasone Propionate [Flonase Allergy Relief] 1 spray EA NOSTRIL DAILY PRN 03/20 [History] cloNIDine HCL 0.3 mg PO TID 08/19/15 [History] Olopatadine HCl [Patanol] 1 drop BOTH EYES BID 10/24/15 [History] Vortioxetine Hydrobromide [Trintellix] 10 mg PO DAILY 10/24/15 [History] Morphine Sulfate ER [Ms Contin] 60 mg PO BID 03/25/16 [History] Pantoprazole Sodium [Protonix] 40 mg PO DAILY #60 tablet. 03/29/16 [Rx] Follow up Appointment(s)/Referral(s): Constantine Montenegro DO [Primary Care Provider] - 1 Week Discharge Disposition: HOME SELF-CARE
== END 2016-03-29 16:54 | disposition home or self-care (01) | DRG 392 ==
LOC: EC 12:35 → 6SEL 16:46 → 4MS4W 03-27 15:40
PROVIDERS: ADMIT Internal Medicine; ATTEND Internal Medicine
PROC: 0DB68ZX Excision of Stomach, Via Natural or Artificial Opening Endoscopic, Diagnostic (ICD-10-PCS; principal; 2016-03-28 07:30)
DX: R10.13 Epigastric pain (principal); F32.9 Major depressive disorder, single episode, unspecified; R11.2 Nausea with vomiting, unspecified; I16.0 Hypertensive urgency; K20.9 Esophagitis, unspecified; F41.0 Panic disorder [episodic paroxysmal anxiety]; T50.995A Adverse effect of other drugs, medicaments and biological substances, initial encounter; F43.10 Post-traumatic stress disorder, unspecified; G89.29 Other chronic pain; K29.60 Other gastritis without bleeding; K44.9 Diaphragmatic hernia without obstruction or gangrene; F41.9 Anxiety disorder, unspecified; G43.909 Migraine, unspecified, not intractable, without status migrainosus; K57.90 Diverticulosis of intestine, part unspecified, without perforation or abscess without bleeding; M51.36 Other intervertebral disc degeneration, lumbar region; Z85.42 Personal history of malignant neoplasm of other parts of uterus; Z87.891 Personal history of nicotine dependence; Z79.899 Other long term (current) drug therapy; Z88.1 Allergy status to other antibiotic agents; Z88.0 Allergy status to penicillin; Y92.009 Unspecified place in unspecified non-institutional (private) residence as the place of occurrence of the external cause
CPT/HCPCS: 36415; 43239; 71275; 74177; 80048; 80053; 81001; 82150; 82247; 82533; 82550; 82553; 83036; 83605; 83690; 84450; 84460; 84484; 85025; 85610; 85730; 87040; 87086; 87502; 88305; 88342; 93005; 94760; 96361; 96365; 96366; 96375; 96376; 99291

== ENCOUNTER 2016-06-14 22:16 | Emergency (ER) | payer MEDICARE, BC ==
[2016-06-14] MEDS ORDERED: MORPHINE SULFATE 4 MG/ML SYRINGE IM STA (22:49)
--- NOTE | 2016-06-14 23:07 | XR ---
EXAM: XR Right Knee, 3 views. CLINICAL HISTORY: Reason: RT knee pain after injury. PT heard a "pop" and is now unable to ambulate TECHNIQUE: Three views of the right knee. COMPARISON: None FINDINGS: Bones/joints: No acute fracture or dislocation identified. Minimal degenerative spurring in the medial and lateral compartments. Joint spaces are maintained. Small enthesophytes off the superior and inferior patella. Difficult to evaluate for joint effusion given overlying soft tissue densities. Soft tissues: Generalized soft tissue edema. IMPRESSION: No acute abnormality identified. If there is concern for ligamentous injury, further evaluation could be performed with MRI.
--- NOTE | 2016-06-14 23:23 | ED ---
Lower Extremity Injury HPI - General Chief Complaint: Extremity Injury, Lower Stated Complaint: R Knee Injury Time Seen by Provider: 06/14/16 22:29 Source: patient, RN notes reviewed Mode of arrival: wheelchair Limitations: no limitations - History of Present Illness Initial Comments: 51-year-old female presents emergency Department with chief complaint of right knee pain. Patient states she's been having some discomfort after pinching her popliteal region on a plastic chair. Patient states today she was bowling and which she slid and felt a sudden onset of pain and a pop to her knee. She states that she has severe pain to her knee, swelling. Patient wasn't wearing her knee brace at this time. Patient had no prior knee problems up until this issue. Patient denies any previous surgeries. Patient states that the pain is unbearable though she did not take your pain medication she normally takes Percocet. Patient offers no other complaints. - Related Data Home Medications Medication Instructions Recorded Confirmed Diazepam [Valium] 5 mg PO TID 08/28/13 06/14/16 oxyCODONE-APAP 10-325MG [Percocet 1 tab PO TID PRN 02/08/14 06/14/16 10-325 mg] Cetirizine HCl [Zyrtec] 10 mg PO DAILY PRN 10/04/14 06/14/16 Fluticasone Propionate [Flonase 1 spray EA NOSTRIL DAILY PRN 10/04/14 06/14/16 Allergy Relief] cloNIDine HCL 0.3 mg PO TID 08/19/15 06/14/16 Olopatadine HCl [Patanol] 1 drop BOTH EYES BID 10/24/15 06/14/16 Vortioxetine Hydrobromide 10 mg PO DAILY 10/24/15 06/14/16 [Trintellix] Morphine Sulfate ER [Ms Contin] 120 mg PO BID 03/25/16 06/14/16 Calcium Carbonate [Tums] 1,000 mg PO DAILY PRN 06/14/16 06/14/16 Hydrochlorothiazide 25 mg PO DAILY 06/14/16 06/14/16 Losartan Potassium [Cozaar] 25 mg PO DAILY 06/14/16 06/14/16 Nitrofurantoin Monohyd/M-Cryst 100 mg PO Q12HR 06/14/16 06/14/16 [Macrobid] amLODIPine [Norvasc] 10 mg PO DAILY 06/14/16 06/14/16 diphenhydrAMINE HCL [Benadryl] 50 mg PO HS PRN 06/14/16 06/14/16 Allergies Allergy/AdvReac Type Severity Reaction Status Date / Time erythromycin base Allergy Rash/Hives Verified 06/14/16 22:47 [Erythromycin Base] Penicillins Allergy Rash/Hives Verified 06/14/16 22:47 Review of Systems ROS Statement: Those systems with pertinent positive or pertinent negative responses have been documented in the HPI. ROS Other: All systems not noted in ROS Statement are negative. Past Medical History Past Medical History: Cancer, Hypertension Additional Past Medical History / Comment(s): migraines, chronic back pain, hx uterine cancer, colon polyp removal, diverticulitis History of Any Multi-Drug Resistant Organisms: None Reported Date of last positivie culture/infection: None MDRO Source:: None Past Surgical History: Adenoidectomy, Appendectomy, Section, Cholecystectomy, Hysterectomy, Tonsillectomy Additional Past Surgical History / Comment(s): eye surgery bilateral for saliphingooophtomy. lymph node removed breast it was benign Past Anesthesia/Blood Transfusion Reactions: Postoperative Nausea & Vomiting ( PONV) Past Psychological History: Anxiety, Depression, Panic Disorder, PTSD Additional Psychological History / Comment(s): Pt.'s committed suicide about 3 years ago, pt. found him and states, "I have good and bad days." Smoking Status: Former smoker Past Alcohol Use History: None Reported Additional Past Alcohol Use History / Comment(s): smoked about 9 years socially <1/2ppd Past Drug Use History: None Reported - Past Family History Father Family Medical History: Cancer Mother Family Medical History: CVA/TIA Brother(s) Family Medical History: No Reported History (Patient has 3 brothers with diagnosis of small bowel obstruction.) Sister(s) Family Medical History: No Reported History (One sister no major medical problems.) General Exam Limitations: no limitations General appearance: alert, in no apparent distress Respiratory exam: Present: normal lung sounds bilaterally. Absent: respiratory distress, wheezes, rales, rhonchi, stridor Cardiovascular Exam: Present: regular rate, normal rhythm, normal heart sounds. Absent: systolic murmur, diastolic murmur, rubs, gallop, clicks Extremities exam: Present: other (Right knee abdomen is limited exam secondary to patient's pain she has pain or popliteal region, lateral knee aspect. There is no pain with patellar movement patient has pain with full extension, flexion neurovascular intact) Course Vital Signs 06/14/16 22:23 Temperature 98 F Pulse Rate 100 Respiratory 20 Rate Blood Pressure 202/98 O2 Sat by Pulse 98 Oximetry Medical Decision Making - Medical Decision Making 51-year-old female presented for right knee pain. Patient has a right knee strain. There may be a significant ligamentous injury and which she'll be placed in knee immobilizer this time and follow-up with on-call orthopedics Dr. Cm. Return parameters were discussed. Disposition Clinical Impression: Right knee sprain Disposition: HOME SELF-CARE Condition: Stable Instructions: Knee Sprain (ED) Additional Instructions: Please return to the Emergency Department if symptoms worsen or any other concerns. Referrals: Constantine Montenegro DO [Primary Care Provider] - 1-2 days Addison Cm DO [Doctor of Osteopathic Medicine] - 1-2 days Time of Disposition: 23:34
[2016-06-14 23:53] VITALS: BP 185/82; PULSE 94; RESP 18; TEMP 98.3
== END 2016-06-14 23:59 | disposition home or self-care (01) ==
LOC: EC 22:16
DX: S83.91XA Sprain of unspecified site of right knee, initial encounter (principal); I10 Essential (primary) hypertension; F32.9 Major depressive disorder, single episode, unspecified; F41.9 Anxiety disorder, unspecified; F41.0 Panic disorder [episodic paroxysmal anxiety]; Z85.42 Personal history of malignant neoplasm of other parts of uterus; Z87.891 Personal history of nicotine dependence; Z79.891 Long term (current) use of opiate analgesic; Z79.899 Other long term (current) drug therapy; Z88.0 Allergy status to penicillin; Z88.1 Allergy status to other antibiotic agents; X50.9XXA Other and unspecified overexertion or strenuous movements or postures, initial encounter
CPT/HCPCS: 73562; 99283; 96372; L1830; J2270

== ENCOUNTER → 2016-06-16 | Outpatient (CLI) | payer MEDICARE, BC ==
--- NOTE | 2016-06-16 11:46 | US ---
EXAMINATION TYPE: US venous doppler duplex LE RT DATE OF EXAM: 06/16/2016 11:27 AM COMPARISON: NONE CLINICAL HISTORY: I80.9 Phlebitis and thrombophlebitis of unspecifie. Patient states while bowling, h eard a pop in knee then started to swell. SIDE PERFORMED: Right TECHNIQUE: The lower extremity deep venous system is examined utilizing real time linear array sonog brenda with graded compression, doppler sonography and color-flow sonography. VESSELS IMAGED: External Iliac Vein (EIV) Common Femoral Vein Deep Femoral Vein Greater Saphenous Vein * Femoral Vein Popliteal Vein Small Saphenous Vein * Proximal Calf Veins (* superficial vessels) Right Leg: Appears negative for DVT IMPRESSION: Grayscale, color doppler, spectral doppler imaging performed of the deep veins of the lo wer extremities. There is normal flow, compressibility, vascular waveforms bilaterally.
== END | disposition home or self-care (01) ==
LOC: RADUSWWP 11:00
PROVIDERS: ATTEND Orthopaedic Surgery
DX: M79.661 Pain in right lower leg (principal); I80.299 Phlebitis and thrombophlebitis of other deep vessels of unspecified lower extremity

== ENCOUNTER 2016-07-17 19:11 | Emergency (ER) | payer MEDICARE, BC ==
[2016-07-17] MEDS ORDERED: MORPHINE SULFATE 4 MG/ML SYRINGE IVP STA ×2 (20:11→22:16)
[2016-07-17] MEDS ORDERED: KETOROLAC 30 MG/ML 1 ML VIAL IVP STA (20:11)
[2016-07-17 20:41] VITALS: RESP 18
[2016-07-17 20:51] LABS: Basophils # (A) 0.1 k/uL (0-0.2); Basophils % (A) 1 %; CH 28.1; CHCM 32.5; Eosinophils # (A) 0.2 k/uL (0-0.7); Eosinophils % (A) 2 %; HDW 2.78; HGB 15.1 gm/dL (11.4-16.0); Luc # (Auto) 0.13; Luc % (Auto) 2; Lymphocytes # (A) 1.7 k/uL (1.0-4.8); Lymphocytes % (A) 20 %; MCH 27.9 pg (25.0-35.0); MCHC 32.2 g/dL (31.0-37.0); MCV 86.7 fL (80.0-100.0); Mean Platelet Volume 6.6; Monocytes # (A) 0.5 k/uL (0-1.0); Monocytes % (A) 6 %; Neutrophils # (A) 6.3 k/uL (1.3-7.7); Neutrophils % (A) 71 %; RBC 5.42 m/uL (3.80-5.40); RDW 13.9 % (11.5-15.5); WBC 8.9 k/uL (3.8-10.6); WBC (Perox) 8.58
--- NOTE | 2016-07-17 21:02 | XR ---
EXAMINATION TYPE: XR knee complete RT DATE OF EXAM: 07/17/2016 8:54 PM COMPARISON: 06/14/2016 HISTORY: Knee pain TECHNIQUE: 3 views FINDINGS: I see no fracture nor dislocation. There is a mild knee joint effusion. Joint spaces are fa irly normal. IMPRESSION: Small knee joint effusion without change compared to old exam. No fracture.
[2016-07-17 21:04] LABS: Anion Gap 16 mmol/L; Blood Urea Nitrogen 5 mg/dL (7-17); C Reactive Protein 11.1 mg/L (<10.0); Calcium 10.8 mg/dL (8.4-10.2); Carbon Dioxide 29 mmol/L (22-30); Chloride 102 mmol/L (98-107); Glucose 108 mg/dL (74-99); Non-African American GFR(MDRD) >60 (>60 ml/min/1.73 sqM); Potassium 3.6 mmol/L (3.5-5.1); Sodium 147 mmol/L (137-145)
[2016-07-17 22:01] LABS: Erythrocyte Sedimentation Rate 22 mm/hr (0-20)
--- NOTE | 2016-07-17 22:46 | ED ---
General Adult HPI - General Chief complaint: Extremity Injury, Lower Stated complaint: Knee Pain Source: patient Mode of arrival: wheelchair Limitations: no limitations - History of Present Illness Initial comments: 51-year-old female presented for evaluation of right knee pain. She states that she was diagnosed with meniscal tears to the right knee about a month or 2 ago and since then she has tried multiple therapies including cortisone shots to the knee and other medications. She is started to have worsening symptoms over the last week and these are limited her movements. She denies any fevers or chills or overlying erythema to the right knee just stating that it is painful when ambulating or moving. Her orthopedic surgeon is Dr. Cruz. - Related Data Home Medications Medication Instructions Recorded Confirmed Diazepam [Valium] 5 mg PO BID PRN 08/28/13 07/17/16 oxyCODONE-APAP 10-325MG [Percocet 1 tab PO TID 02/08/14 07/17/16 10-325 mg] Cetirizine HCl [Zyrtec] 10 mg PO DAILY PRN 10/04/14 07/17/16 Fluticasone Propionate [Flonase 1 spray EA NOSTRIL DAILY PRN 10/04/14 07/17/16 Allergy Relief] cloNIDine HCL 0.3 mg PO TID 08/19/15 07/17/16 Olopatadine HCl [Patanol] 1 drop BOTH EYES BID 10/24/15 07/17/16 Vortioxetine Hydrobromide 10 mg PO DAILY 10/24/15 07/17/16 [Trintellix] Morphine Sulfate ER [Ms Contin] 60 mg PO Q12H 03/25/16 07/17/16 Hydrochlorothiazide 25 mg PO DAILY PRN 06/14/16 07/17/16 diphenhydrAMINE HCL [Benadryl] 50 mg PO HS PRN 06/14/16 07/17/16 Losartan Potassium [Cozaar] 100 mg PO DAILY 07/17/16 07/17/16 Allergies Allergy/AdvReac Type Severity Reaction Status Date / Time erythromycin base Allergy Rash/Hives Verified 07/17/16 19:45 [Erythromycin Base] Penicillins Allergy Rash/Hives Verified 07/17/16 19:45 Review of Systems ROS Statement: Those systems with pertinent positive or pertinent negative responses have been documented in the HPI. ROS Other: All systems not noted in ROS Statement are negative. Constitutional: Denies: fever, chills Eyes: Denies: eye pain, eye discharge, vision change ENT: Denies: ear pain, throat pain Respiratory: Denies: cough, dyspnea, wheezes, hemoptysis, stridor Cardiovascular: Denies: chest pain, palpitations, dyspnea on exertion, orthopnea Endocrine: Denies: fatigue, polydipsia, polyuria Gastrointestinal: Denies: abdominal pain, nausea, vomiting Genitourinary: Denies: urgency, dysuria Musculoskeletal: Reports: arthralgia (right knee). Denies: back pain, myalgia Skin: Denies: rash, lesions Neurological: Denies: headache, weakness Psychiatric: Denies: anxiety, depression Hematological/Lymphatic: Denies: easy bleeding, easy bruising Past Medical History Past Medical History: Cancer, Hypertension Additional Past Medical History / Comment(s): migraines, chronic back pain, hx uterine cancer, colon polyp removal, diverticulitis History of Any Multi-Drug Resistant Organisms: None Reported Date of last positivie culture/infection: None MDRO Source:: None Past Surgical History: Adenoidectomy, Appendectomy, Section, Cholecystectomy, Hysterectomy, Tonsillectomy Additional Past Surgical History / Comment(s): eye surgery bilateral for saliphingooophtomy. lymph node removed breast it was benign Past Anesthesia/Blood Transfusion Reactions: Postoperative Nausea & Vomiting ( PONV) Past Psychological History: Anxiety, Depression, Panic Disorder, PTSD Additional Psychological History / Comment(s): Pt.'s committed suicide about 3 years ago, pt. found him and states, "I have good and bad days." Smoking Status: Former smoker Past Alcohol Use History: None Reported Additional Past Alcohol Use History / Comment(s): smoked about 9 years socially <1/2ppd Past Drug Use History: None Reported - Past Family History Father Family Medical History: Cancer Mother Family Medical History: CVA/TIA Brother(s) Family Medical History: No Reported History (Patient has 3 brothers with diagnosis of small bowel obstruction.) Sister(s) Family Medical History: No Reported History (One sister no major medical problems.) General Exam Limitations: no limitations General appearance: alert, in distress Head exam: Present: atraumatic, normocephalic, normal inspection Eye exam: Present: normal appearance, PERRL, EOMI. Absent: scleral icterus, conjunctival injection, periorbital swelling ENT exam: Present: normal exam, mucous membranes moist Neck exam: Present: normal inspection. Absent: tenderness, meningismus, lymphadenopathy Respiratory exam: Present: normal lung sounds bilaterally. Absent: respiratory distress, wheezes, rales, rhonchi, stridor Cardiovascular Exam: Present: normal rhythm, tachycardia, normal heart sounds. Absent: systolic murmur, diastolic murmur, rubs, gallop, clicks GI/Abdominal exam: Present: soft, normal bowel sounds. Absent: distended, tenderness, guarding, rebound, rigid Rectal exam: Present: deferred Extremities exam: Present: normal inspection, full ROM, normal capillary refill. Absent: tenderness, pedal edema, joint swelling, calf tenderness Back exam: Present: normal inspection Neurological exam: Present: alert, oriented X3, CN II-XII intact, abnormal gait (mild limp) Psychiatric exam: Present: normal affect, normal mood Skin exam: Present: warm, dry, intact, normal color. Absent: rash Course Vital Signs 07/17/16 07/17/16 07/17/16 19:16 20:40 21:19 Temperature 98.3 F Pulse Rate 123 H 110 H 109 H Respiratory 20 18 18 Rate Blood Pressure 198/99 170/106 187/100 O2 Sat by Pulse 96 96 96 Oximetry 07/17/16 23:03 Temperature 98.5 F Pulse Rate 100 Respiratory 18 Rate Blood Pressure 187/97 O2 Sat by Pulse 96 Oximetry Medical Decision Making - Medical Decision Making 51-year-old female with past medical history of to tears to her right meniscus presented for evaluation of right knee pain. She states that she has undergone cortisone shots in the knee previously and that over the last week her symptoms have been worsening. On physical examination she does have tenderness to palpation at the knee although there is no overlying erythema or warmth. Patient is able ambulate with only mild left. Physical exam is not concerning for a septic joint and the patient denies any further injuries to the leg/knee.labs revealed a mildly elevated CRP however the remainder remained benign. Right knee x-ray showed an effusion that was consistent with previous x -rays. Discussed with Loretta Correa (ortho) who agreed with plan to have pt follow up in the office tomorrow morning and to advise NSAID use for pain control. the patient was informed of this plan and agreed stating that she would make a call in the morning. She was further informed that she would be given prescriptions for pain control that she should follow up with her primary care physician as well as her orthopedic physician Dr. Cruz in the morning. She is further advised to return to this facility if her symptoms should worsen or persist. The patient acknowledged an understanding of this information and agreed with this plan of care. - Lab Data Result diagrams: 07/17/16 20:42 07/17/16 20:42 Lab Results 07/17/16 07/17/16 Range/Units 20:42 20:42 WBC 8.9 (3.8-10.6) k/uL RBC 5.42 H (3.80-5.40) m/uL Hgb 15.1 (11.4-16.0) gm/dL Hct 47.0 H (34.0-46.0) % MCV 86.7 (80.0-100.0) fL MCH 27.9 (25.0-35.0) pg MCHC 32.2 (31.0-37.0) g/dL RDW 13.9 (11.5-15.5) % Plt Count 398 (150-450) k/uL Neutrophils % 71 % Lymphocytes % 20 % Monocytes % 6 % Eosinophils % 2 % Basophils % 1 % Neutrophils # 6.3 (1.3-7.7) k/uL Lymphocytes # 1.7 (1.0-4.8) k/uL Monocytes # 0.5 (0-1.0) k/uL Eosinophils # 0.2 (0-0.7) k/uL Basophils # 0.1 (0-0.2) k/uL ESR 22 H (0-20) mm/hr Sodium 147 H (137-145) mmol/L Potassium 3.6 (3.5-5.1) mmol/L Chloride 102 (98-107) mmol/L Carbon Dioxide 29 (22-30) mmol/L Anion Gap 16 mmol/L BUN 5 L (7-17) mg/dL Creatinine 0.90 (0.52-1.04) mg/dL Est GFR (MDRD) Af Amer >60 (>60 ml/min/1.73 sqM) Est GFR (MDRD) Non-Af >60 (>60 ml/min/1.73 sqM) Glucose 108 H (74-99) mg/dL Calcium 10.8 H (8.4-10.2) mg/dL C-Reactive Protein 11.1 H (<10.0) mg/L Disposition Clinical Impression: Right knee pain Disposition: HOME SELF-CARE Condition: Stable Instructions: Knee Sprain (ED) Referrals: Constantine Montenegro DO [Primary Care Provider] - 1-2 days Loretta Correa PAC [PHYSICIAN [facility]] - 1-2 days Time of Disposition: 22:46
[2016-07-17 23:04] VITALS: BP 187/97; PULSE 100; TEMP 98.5
== END 2016-07-17 23:04 | disposition home or self-care (01) ==
LOC: EC 19:11
DX: M25.561 Pain in right knee (principal); I10 Essential (primary) hypertension; F32.9 Major depressive disorder, single episode, unspecified; F41.9 Anxiety disorder, unspecified; F41.0 Panic disorder [episodic paroxysmal anxiety]; F43.10 Post-traumatic stress disorder, unspecified; Z85.42 Personal history of malignant neoplasm of other parts of uterus; Z87.891 Personal history of nicotine dependence; Z79.891 Long term (current) use of opiate analgesic; Z79.899 Other long term (current) drug therapy; Z88.0 Allergy status to penicillin; Z88.1 Allergy status to other antibiotic agents
CPT/HCPCS: 36415; 80048; 85652; 85025; 86140; 73562; 99283; 96374; 96375; 96376; J2270; J1885

== ENCOUNTER 2016-07-23 20:53 | Emergency (ER) | payer MEDICARE, BC ==
[2016-07-23] MEDS ORDERED: SODIUM CHLORIDE 0.9% 1,000 ML IV ONE (22:29)
[2016-07-23] MEDS ORDERED: ONDANSETRON 4 MG/2 ML VIAL IVP STA (22:37)
[2016-07-23] MEDS ORDERED: HYDROmorphone 1 MG/ML 1 ML SYRINGE IVP STA (22:37)
--- NOTE | 2016-07-23 22:41 | ED ---
Nausea/Vomiting/Diarrhea HPI - General Chief complaint: Nausea/Vomiting/Diarrhea Stated complaint: Vomiting Time Seen by Provider: 07/23/16 22:27 Source: patient, RN notes reviewed Mode of arrival: wheelchair Limitations: no limitations - History of Present Illness Initial comments: Patient is a 51-year-old female presents emergency room for evaluation of vomiting 5 days. Patient states on Monday at 5 AM she began with nausea and vomiting. Patient states she has been able to eat or keep anything down since. Patient states she's been having tiny sips of Gatorade with no relief of symptoms. Patient denies new foods. Patient denies recent travel outside the country. Patient states today she had an episode of diarrhea. Patient states she has a history of appendectomy, cholecystectomy, hysterectomy, tubal ligation. Patient denies any history of bowel obstructions. Patient denies significant abdominal pain. Patient does state she has chronic right knee and back pain. Patient states he's been unable to take her pain medications as been having increasing pain. Patient has chest pain shortness of breath. Patient denies headache or dizziness. - Related Data Home Medications Medication Instructions Recorded Confirmed Diazepam [Valium] 5 mg PO BID PRN 08/28/13 07/24/16 oxyCODONE-APAP 10-325MG [Percocet 1 tab PO TID 02/08/14 07/24/16 10-325 mg] Cetirizine HCl [Zyrtec] 10 mg PO DAILY PRN 10/04/14 07/24/16 Fluticasone Propionate [Flonase 1 spray EA NOSTRIL DAILY PRN 10/04/14 07/24/16 Allergy Relief] cloNIDine HCL 0.3 mg PO TID 08/19/15 07/24/16 Olopatadine HCl [Patanol] 1 drop BOTH EYES BID 10/24/15 07/24/16 Vortioxetine Hydrobromide 10 mg PO DAILY 10/24/15 07/24/16 [Trintellix] Morphine Sulfate ER [Ms Contin] 60 mg PO Q12H 03/25/16 07/24/16 Hydrochlorothiazide 25 mg PO DAILY PRN 06/14/16 07/24/16 diphenhydrAMINE HCL [Benadryl] 50 mg PO HS PRN 06/14/16 07/24/16 Losartan Potassium [Cozaar] 100 mg PO DAILY 07/17/16 07/24/16 Previous Rx's Medication Instructions Recorded Ondansetron Odt [Zofran Odt] 4 mg PO Q8HR PRN #12 tab 07/24/16 Allergies Allergy/AdvReac Type Severity Reaction Status Date / Time erythromycin base Allergy Rash/Hives Verified 07/23/16 21:07 [Erythromycin Base] Penicillins Allergy Rash/Hives Verified 07/23/16 21:07 Review of Systems ROS Statement: Those systems with pertinent positive or pertinent negative responses have been documented in the HPI. ROS Other: All systems not noted in ROS Statement are negative. Past Medical History Past Medical History: Cancer, Hypertension Additional Past Medical History / Comment(s): migraines, chronic back pain, hx uterine cancer, colon polyp removal, diverticulitis, meniscus tears History of Any Multi-Drug Resistant Organisms: C-DIFF Date of last positivie culture/infection: 2014 MDRO Source:: stool Past Surgical History: Adenoidectomy, Appendectomy, Section, Cholecystectomy, Hysterectomy, Tonsillectomy Additional Past Surgical History / Comment(s): eye surgery bilateral for saliphingooophtomy; Laser eye surgery. lymph node removed breast it was benign Past Anesthesia/Blood Transfusion Reactions: Postoperative Nausea & Vomiting ( PONV) Past Psychological History: Anxiety, Depression, Panic Disorder, PTSD Additional Psychological History / Comment(s): Pt.'s committed suicide about 3 years ago, pt. found him and states, "I have good and bad days." Smoking Status: Former smoker Past Alcohol Use History: None Reported Additional Past Alcohol Use History / Comment(s): smoked about 9 years socially <1/2ppd Past Drug Use History: None Reported - Past Family History Father Family Medical History: Cancer Mother Family Medical History: CVA/TIA Brother(s) Family Medical History: No Reported History (Patient has 3 brothers with diagnosis of small bowel obstruction.) Sister(s) Family Medical History: No Reported History (One sister no major medical problems.) General Exam - General Exam Comments Initial Comments: Sitting in exam room, no acute distress. Limitations: no limitations General appearance: alert, in no apparent distress Head exam: Present: atraumatic, normocephalic, normal inspection Eye exam: Present: normal appearance ENT exam: Present: normal exam Neck exam: Present: normal inspection Respiratory exam: Present: normal lung sounds bilaterally. Absent: respiratory distress Cardiovascular Exam: Present: regular rate, normal rhythm, normal heart sounds GI/Abdominal exam: Present: soft, normal bowel sounds. Absent: distended, tenderness, guarding, rebound, rigid Extremities exam: Present: normal inspection Back exam: Present: normal inspection Neurological exam: Present: alert, oriented X3, CN II-XII intact, normal gait Psychiatric exam: Present: normal affect, normal mood Skin exam: Present: warm, dry, intact, normal color. Absent: rash Course Vital Signs 07/23/16 07/23/16 07/24/16 21:04 23:08 00:22 Temperature 98.1 F 98.8 F Pulse Rate 105 H 90 100 Respiratory 18 20 18 Rate Blood Pressure 192/93 185/98 192/83 O2 Sat by Pulse 95 95 97 Oximetry 07/24/16 07/24/16 01:25 01:58 Temperature 99.2 F 98.1 F Pulse Rate 92 94 Respiratory 18 18 Rate Blood Pressure 162/81 153/83 O2 Sat by Pulse 96 95 Oximetry Medical Decision Making - Medical Decision Making patient is a 51-year-old female presents to the emergency room for evaluation nausea and vomiting. Patient states her symptoms have improved after fluids and antinausea medication. Patient was sent home with Candy advised to follow- up with primary care provider. Patient states she understands everything that was discussed with her. Return parameters discussed. Case discussed with Dr. Shaw. - Lab Data Result diagrams: 07/23/16 23:00 07/23/16 23:00 Lab Results 07/23/16 07/23/16 Range/Units 23:00 23:00 WBC 11.4 H (3.8-10.6) k/uL RBC 5.40 (3.80-5.40) m/uL Hgb 15.1 (11.4-16.0) gm/dL Hct 46.4 H (34.0-46.0) % MCV 85.9 (80.0-100.0) fL MCH 28.1 (25.0-35.0) pg MCHC 32.6 (31.0-37.0) g/dL RDW 14.5 (11.5-15.5) % Plt Count 433 (150-450) k/uL Neutrophils % 74 % Lymphocytes % 18 % Monocytes % 5 % Eosinophils % 1 % Basophils % 1 % Neutrophils # 8.5 H (1.3-7.7) k/uL Lymphocytes # 2.0 (1.0-4.8) k/uL Monocytes # 0.5 (0-1.0) k/uL Eosinophils # 0.1 (0-0.7) k/uL Basophils # 0.1 (0-0.2) k/uL Sodium 141 (137-145) mmol/L Potassium 3.4 L (3.5-5.1) mmol/L Chloride 101 (98-107) mmol/L Carbon Dioxide 26 (22-30) mmol/L Anion Gap 14 mmol/L BUN 19 H (7-17) mg/dL Creatinine 0.80 (0.52-1.04) mg/dL Est GFR (MDRD) Af Amer >60 (>60 ml/min/1.73 sqM) Est GFR (MDRD) Non-Af >60 (>60 ml/min/1.73 sqM) Glucose 134 H (74-99) mg/dL Calcium 10.3 H (8.4-10.2) mg/dL Magnesium 2.2 (1.6-2.3) mg/dL Total Bilirubin 0.7 (0.2-1.3) mg/dL AST 60 H (14-36) U/L ALT 100 H (9-52) U/L Alkaline Phosphatase 121 (38-126) U/L Total Protein 7.5 (6.3-8.2) g/dL Albumin 4.7 (3.5-5.0) g/dL Amylase 88 (30-110) U/L Lipase 289 (23-300) U/L - Radiology Data Radiology results: report reviewed, image reviewed Disposition Clinical Impression: Nausea & vomiting Disposition: HOME SELF-CARE Condition: Good Instructions: Gastroenteritis (ED) Additional Instructions: Take Zofran as needed for nausea. Drink plenty of fluids. Please follow up with primary care provider in 1-2 days. If any new symptom arises or symptoms worsen, return to ER as soon as possible. Prescriptions: Ondansetron Odt [Zofran Odt] 4 mg PO Q8HR PRN #12 tab PRN Reason: Nausea Referrals: Constantine Montenegro DO [Primary Care Provider] - 1-2 days Time of Disposition: 01:53
[2016-07-23 23:11] LABS: Basophils # (A) 0.1 k/uL (0-0.2); Basophils % (A) 1 %; CH 28.6; CHCM 33.4; Eosinophils # (A) 0.1 k/uL (0-0.7); Eosinophils % (A) 1 %; HCT 46.4 % (34.0-46.0); HDW 2.76; HGB 15.1 gm/dL (11.4-16.0); Luc # (Auto) 0.18; Luc % (Auto) 2; Lymphocytes % (A) 18 %; MCH 28.1 pg (25.0-35.0); MCHC 32.6 g/dL (31.0-37.0); MCV 85.9 fL (80.0-100.0); Mean Platelet Volume 6.9; Monocytes # (A) 0.5 k/uL (0-1.0); Monocytes % (A) 5 %; Neutrophils # (A) 8.5 k/uL (1.3-7.7); Neutrophils % (A) 74 %; RDW 14.5 % (11.5-15.5); WBC 11.4 k/uL (3.8-10.6); WBC (Perox) 10.93
[2016-07-23 23:20] LABS: ALT 100 U/L (9-52); AST 60 U/L (14-36); Alkaline Phosphatase 121 U/L (38-126); Amylase 88 U/L (30-110); Blood Urea Nitrogen 19 mg/dL (7-17); Calcium 10.3 mg/dL (8.4-10.2); Carbon Dioxide 26 mmol/L (22-30); Glucose 134 mg/dL (74-99); Magnesium 2.2 mg/dL (1.6-2.3); Non-African American GFR(MDRD) >60 (>60 ml/min/1.73 sqM); Total Bilirubin 0.7 mg/dL (0.2-1.3); Total Protein 7.5 g/dL (6.3-8.2)
[2016-07-23 23:27] LABS: Anion Gap 14 mmol/L; Chloride 101 mmol/L (98-107); Potassium 3.4 mmol/L (3.5-5.1); Sodium 141 mmol/L (137-145)
[2016-07-24 00:24] VITALS: RESP 18
[2016-07-24] MEDS ORDERED: METOCLOPRAMIDE 5 MG/ML 2 ML VIAL IVP STA (00:31)
[2016-07-24] MEDS ORDERED: KETOROLAC 30 MG/ML 1 ML VIAL IVP STA (00:31)
[2016-07-24] MEDS ORDERED: SODIUM CHLORIDE 0.9% 500 ML IV ONE (00:31)
--- NOTE | 2016-07-24 00:55 | XR ---
EXAM: XR Abdomen CLINICAL HISTORY: Abdominal pain. TECHNIQUE: Frontal view of the abdomen and pelvis and upright view including the lower chest and abdomen. COMPARISON: No relevant prior studies available. FINDINGS: Lungs: Suspect subtle opacity at the cardiac apex. Visualized lung bases otherwise clear. Heart: Cardiac silhouette size appears within normal limits. Free air: No evidence of free intraperitoneal air. Gastrointestinal tract: Nonspecific bowel gas pattern. No significantly dilated bowel loops to suggest obstruction. Soft tissues/other: Surgical clips in the right upper quadrant and left pelvis. Bones/joints: Osseous structures appear intact. IMPRESSION: 1. Nonspecific bowel gas pattern. No significantly dilated bowel loops to suggest obstruction. No evidence of free air. 2. Suspect opacity at the left lung base adjacent to the cardiac apex, possibly atelectasis, scarring, prominent epicardial fat or other etiology. 3. Surgical clips in the right upper quadrant and left pelvis.
[2016-07-24 02:05] VITALS: BP 153/83; PULSE 94; TEMP 98.1
== END 2016-07-24 02:07 | disposition home or self-care (01) ==
LOC: EC 20:53
DX: R11.2 Nausea with vomiting, unspecified (principal); R19.7 Diarrhea, unspecified; G89.29 Other chronic pain; M25.561 Pain in right knee; M54.9 Dorsalgia, unspecified; I10 Essential (primary) hypertension; F41.0 Panic disorder [episodic paroxysmal anxiety]; F32.9 Major depressive disorder, single episode, unspecified; Z87.891 Personal history of nicotine dependence; Z79.891 Long term (current) use of opiate analgesic; Z88.0 Allergy status to penicillin; Z88.1 Allergy status to other antibiotic agents; Z85.41 Personal history of malignant neoplasm of cervix uteri; Z87.19 Personal history of other diseases of the digestive system; Z83.79 Family history of other diseases of the digestive system; Z90.710 Acquired absence of both cervix and uterus; Z90.49 Acquired absence of other specified parts of digestive tract
CPT/HCPCS: 36415; 80053; 82150; 83690; 83735; 85025; 74000; 99284; 96374; 96375 ×3; 96361 ×3; J2765; J2405; J1885; J1170

== ENCOUNTER 2016-09-09 16:46 | Emergency (ER) | payer MEDICARE, BC ==
[2016-09-09 17:15] VITALS: PULSE 96
[2016-09-09 18:51] VITALS: BP 192/124; RESP 18; TEMP 98.7
--- NOTE | 2016-09-09 18:56 | ED ---
Recheck HPI - General Chief Complaint: Recheck/Abnormal Lab/Rx Stated Complaint: Med refill Time Seen by Provider: 09/09/16 18:25 Source: patient Mode of arrival: ambulatory Limitations: no limitations - History of Present Illness Initial Comments: Patient is a 51-year-old female presenting to the emergency department with request for prescription refill for chronic back and chronic leg pain. Patient states she ran out of morphine and Percocet today and [facility] would not fill a new prescription. Patient states she's been unable to get a hold of her primary care physician for a med refill. Patient denies any new or worsening symptoms. Patient denies chills, fevers, nausea, vomiting, shortness of breath, chest pain, or abdominal pain. MD Complaint: medication refill request Onset/Timin -: days(s) Returns Today for: request for prescription Symptoms Since Prior Visit: no new symptoms Context: ran out of medication Associated Symptoms: none - Related Data Home Medications Medication Instructions Recorded Confirmed Diazepam [Valium] 5 mg PO TID 08/28/13 09/09/16 oxyCODONE-APAP 10-325MG [Percocet 1 tab PO TID 02/08/14 09/09/16 10-325 mg] Fluticasone Propionate [Flonase 1 spray EA NOSTRIL DAILY PRN 10/04/14 09/09/16 Allergy Relief] cloNIDine HCL 0.3 mg PO TID 08/19/15 09/09/16 Olopatadine HCl [Patanol] 1 drop BOTH EYES BID 10/24/15 09/09/16 Vortioxetine Hydrobromide 10 mg PO DAILY 10/24/15 09/09/16 [Trintellix] Morphine Sulfate ER [Ms Contin] 120 mg PO Q12H 03/25/16 09/09/16 Hydrochlorothiazide 25 mg PO DAILY 06/14/16 09/09/16 diphenhydrAMINE HCL [Benadryl] 50 mg PO HS PRN 06/14/16 09/09/16 Losartan Potassium [Cozaar] 100 mg PO DAILY 07/17/16 09/09/16 amLODIPine [Norvasc] 10 mg PO HS 09/09/16 09/09/16 Previous Rx's Medication Instructions Recorded HYDROcodone/APAP 5-325MG [Bracey 1 tab PO Q6H PRN #10 tab 07/07/17 5-325] Allergies Allergy/AdvReac Type Severity Reaction Status Date / Time erythromycin base Allergy Rash/Hives Verified 09/09/16 18:21 [Erythromycin Base] Penicillins Allergy Rash/Hives Verified 09/09/16 18:21 Review of Systems ROS Statement: Those systems with pertinent positive or pertinent negative responses have been documented in the HPI. ROS Other: All systems not noted in ROS Statement are negative. Past Medical History Past Medical History: Cancer, Hypertension Additional Past Medical History / Comment(s): migraines, chronic back pain, hx uterine cancer, colon polyp removal, diverticulitis, meniscus tears History of Any Multi-Drug Resistant Organisms: C-DIFF Date of last positivie culture/infection: 2014 MDRO Source:: stool Past Surgical History: Adenoidectomy, Appendectomy, Section, Cholecystectomy, Hysterectomy, Tonsillectomy Additional Past Surgical History / Comment(s): eye surgery bilateral for saliphingooophtomy; Laser eye surgery. lymph node removed breast it was benign Past Anesthesia/Blood Transfusion Reactions: Postoperative Nausea & Vomiting ( PONV) Past Psychological History: Anxiety, Depression, Panic Disorder, PTSD Smoking Status: Former smoker Past Alcohol Use History: None Reported Past Drug Use History: None Reported - Past Family History Father Family Medical History: Cancer Mother Family Medical History: CVA/TIA Brother(s) Family Medical History: No Reported History (Patient has 3 brothers with diagnosis of small bowel obstruction.) Sister(s) Family Medical History: No Reported History (One sister no major medical problems.) General Exam Limitations: no limitations General appearance: alert, in no apparent distress Head exam: Present: atraumatic, normocephalic, normal inspection Eye exam: Present: normal appearance. Absent: scleral icterus, conjunctival injection, periorbital swelling, periorbital tenderness Respiratory exam: Present: normal lung sounds bilaterally. Absent: respiratory distress, wheezes, rales, rhonchi, stridor Cardiovascular Exam: Present: regular rate, normal rhythm, normal heart sounds. Absent: systolic murmur GI/Abdominal exam: Present: soft, normal bowel sounds. Absent: tenderness Extremities exam: Present: normal inspection, full ROM Back exam: Present: normal inspection, vertebral tenderness (Tenderness to lumbar spine) Neurological exam: Present: alert, oriented X3, normal gait, other (No focal deficits noted) Psychiatric exam: Present: normal affect, anxious Skin exam: Present: warm, dry, intact, normal color Course Vital Signs 09/09/16 09/09/16 17:08 18:30 Temperature 98.3 F 98.7 F Pulse Rate 96 96 Respiratory 22 18 Rate Blood Pressure 195/120 192/124 O2 Sat by Pulse 97 95 Oximetry Medical Decision Making - Medical Decision Making Opiate dependence and request for medication refill. Did discuss patient with Dr. Vargas, who recommended that patient received 2 Bracey 5 is in the emergency department and a short prescription for 10 tablets post discharge. Patient instructed to follow-up with primary care physician for med refill. Patient agrees with treatment plan. Patient instructed to continue clonidine as prescribed for hypertension. Discharge instructions and return parameters reviewed. Disposition Clinical Impression: Encounter for medication refill, Chronic pain Disposition: HOME SELF-CARE Condition: Good Instructions: Medicine Refill (ED) Additional Instructions: Please follow-up with prescribing physician for future med refill. Please return to the emergency department with any new or worsening symptoms. Prescriptions: HYDROcodone/APAP 5-325MG [Bracey 5-325] 1 tab PO Q6H PRN #10 tab PRN Reason: Pain Referrals: Constantine Montenegro DO [Primary Care Provider] - 1-2 days Time of Disposition: 18:56
[2016-09-09] MEDS ORDERED: HYDROcodone/APAP 5-325MG 1 EACH TAB PO STA (19:00)
== END 2016-09-09 19:05 | disposition home or self-care (01) ==
LOC: EC 16:46
DX: Z76.0 Encounter for issue of repeat prescription (principal); G89.29 Other chronic pain; M54.5 Low back pain; F11.29 Opioid dependence with unspecified opioid-induced disorder; I10 Essential (primary) hypertension; F32.9 Major depressive disorder, single episode, unspecified; F41.9 Anxiety disorder, unspecified; F43.10 Post-traumatic stress disorder, unspecified; Z88.0 Allergy status to penicillin; Z88.1 Allergy status to other antibiotic agents; Z79.899 Other long term (current) drug therapy; Z87.891 Personal history of nicotine dependence
CPT/HCPCS: 99281

== ENCOUNTER 2016-10-24 11:39 | Emergency (ER) | payer MEDICARE, BC ==
[2016-10-24 11:50] VITALS: BP 135/90; PULSE 92; RESP 18; TEMP 97.4
--- NOTE | 2016-10-24 12:19 | ED ---
General Adult HPI - General Chief complaint: Recheck/Abnormal Lab/Rx Stated complaint: Med Refill Time Seen by Provider: 10/24/16 11:51 Source: patient Mode of arrival: ambulatory Limitations: no limitations - History of Present Illness Initial comments: 51-year-old female patient presents to emergency department today requesting refills on her morphine and Percocet prescriptions. Patient states that her primary care physician is refusing to fill them and she does not have an appointment with a pain specialist until November 18. Patient states that both her primary care office and the pain specialist office instructed her to come to the emergency department to have them filled. Patient states that she ran out yesterday. Patient states that this similar situation happened to her last month when her primary care physician made a mistake on her prescription and she had bad symptoms from withdrawals. Patient states that she has been out of her medications for the past few days because she had shingles and migraines and had to take more of her medications than directed. Patient states that she has chronic lower back pain. Patient denies any new injuries or worsening of her condition however she is concerned that she will go into withdrawal. Patient denies any recent fever, chills, shortness breath, chest pain, abdominal pain, nausea/vomiting/diarrhea, numbness, tingling, hematuria, headache, or visual changes, or any other complaints. - Related Data Home Medications Medication Instructions Recorded Confirmed Diazepam [Valium] 5 mg PO TID 08/28/13 09/09/16 oxyCODONE-APAP 10-325MG [Percocet 1 tab PO TID 02/08/14 09/09/16 10-325 mg] Fluticasone Propionate [Flonase 1 spray EA NOSTRIL DAILY PRN 10/04/14 09/09/16 Allergy Relief] cloNIDine HCL 0.3 mg PO TID 08/19/15 09/09/16 Olopatadine HCl [Patanol] 1 drop BOTH EYES BID 10/24/15 09/09/16 Vortioxetine Hydrobromide 10 mg PO DAILY 10/24/15 09/09/16 [Trintellix] Morphine Sulfate ER [Ms Contin] 120 mg PO Q12H 03/25/16 09/09/16 Hydrochlorothiazide 25 mg PO DAILY 06/14/16 09/09/16 diphenhydrAMINE HCL [Benadryl] 50 mg PO HS PRN 06/14/16 09/09/16 Losartan Potassium [Cozaar] 100 mg PO DAILY 07/17/16 09/09/16 amLODIPine [Norvasc] 10 mg PO HS 09/09/16 09/09/16 Previous Rx's Medication Instructions Recorded HYDROcodone/APAP 5-325MG [[place] 1 tab PO Q6H PRN #10 tab 09/09/16 5-325] Allergies Allergy/AdvReac Type Severity Reaction Status Date / Time erythromycin base Allergy Rash/Hives Verified 10/24/16 11:50 [Erythromycin Base] Penicillins Allergy Rash/Hives Verified 10/24/16 11:50 Review of Systems ROS Statement: Those systems with pertinent positive or pertinent negative responses have been documented in the HPI. ROS Other: All systems not noted in ROS Statement are negative. Past Medical History Past Medical History: Cancer, Hypertension Additional Past Medical History / Comment(s): migraines, chronic back pain, hx uterine cancer, colon polyp removal, diverticulitis, meniscus tears History of Any Multi-Drug Resistant Organisms: C-DIFF Date of last positivie culture/infection: 2014 MDRO Source:: stool Past Surgical History: Adenoidectomy, Appendectomy, Section, Cholecystectomy, Hysterectomy, Orthopedic Surgery, Tonsillectomy Additional Past Surgical History / Comment(s): eye surgery bilateral for saliphingooophtomy; Laser eye surgery, right knee surgery. lymph node removed breast it was benign Past Anesthesia/Blood Transfusion Reactions: Postoperative Nausea & Vomiting ( PONV) Past Psychological History: Anxiety, Depression, Panic Disorder, PTSD Smoking Status: Former smoker Past Alcohol Use History: None Reported Past Drug Use History: None Reported - Past Family History Father Family Medical History: Cancer Mother Family Medical History: CVA/TIA Brother(s) Family Medical History: No Reported History (Patient has 3 brothers with diagnosis of small bowel obstruction.) Sister(s) Family Medical History: No Reported History (One sister no major medical problems.) General Exam Limitations: no limitations General appearance: alert, in no apparent distress Respiratory exam: Present: normal lung sounds bilaterally. Absent: respiratory distress, wheezes, rales, rhonchi, stridor Cardiovascular Exam: Present: regular rate, normal rhythm, normal heart sounds. Absent: systolic murmur, diastolic murmur, rubs, gallop, clicks GI/Abdominal exam: Present: soft, normal bowel sounds. Absent: distended, tenderness, guarding, rebound, rigid Back exam: Present: normal inspection Neurological exam: Present: alert, oriented X3, CN II-XII intact Psychiatric exam: Present: normal affect, normal mood, other (Patient upset and crying) Skin exam: Present: warm, dry, intact, normal color. Absent: rash Course Vital Signs 10/24/16 11:46 Temperature 97.4 F L Pulse Rate 92 Respiratory 18 Rate Blood Pressure 135/90 O2 Sat by Pulse 97 Oximetry Medical Decision Making - Medical Decision Making 51-year-old female patient presented to emergency department today for refills on her Percocet and morphine prescriptions. She stated that her primary care physician is now refusing to fill them. I did call the doctor's office and was told that under no circumstances will Dr. Montenegro be refilling the pain prescriptions and that she has no point with a pain specialist on November 18. I did offer the patient a prescription for [place], however patient states that this would not stop her from having withdraws and she refused. I also recommended that she present to [facility] where they would be able to manage her withdrawal symptoms. Patient was instructed to follow-up with her primary care physician one to 2 days for recheck. She was instructed to keep her appointment with her pain specialist. She was also instructed to return here immediately for any new, worsening, or concerning symptoms. Patient verbalizes understanding. Disposition Clinical Impression: Medication refill Disposition: HOME SELF-CARE Condition: Good Instructions: Opioid Dependence (ED), Medicine Refill (ED) Additional Instructions: Obtain prescription refills from primary care physician or from pain specialist. Return immediately for any new, worsening, or concerning symptoms. Referrals: Constantine Montenegro DO [Primary Care Provider] - 1-2 days Time of Disposition: 12:18
== END 2016-10-24 12:32 | disposition home or self-care (01) ==
LOC: EC 11:39
DX: Z76.0 Encounter for issue of repeat prescription (principal); F32.9 Major depressive disorder, single episode, unspecified; F41.9 Anxiety disorder, unspecified; I10 Essential (primary) hypertension; Z85.42 Personal history of malignant neoplasm of other parts of uterus; Z87.891 Personal history of nicotine dependence; Z88.0 Allergy status to penicillin; Z88.1 Allergy status to other antibiotic agents; Z79.899 Other long term (current) drug therapy
CPT/HCPCS: 99281

== ENCOUNTER 2016-12-26 12:35 | Emergency (ER) | payer MEDICARE, BC ==
[2016-12-26] MEDS ORDERED: ONDANSETRON 4 MG/2 ML VIAL IVP STA (12:45)
[2016-12-26] MEDS ORDERED: HYDROmorphone 1 MG/ML 1 ML SYRINGE IVP STA ×3 (12:45→16:13)
[2016-12-26] MEDS ORDERED: SODIUM CHLORIDE 0.9% 1,000 ML IV STA (12:45)
--- NOTE | 2016-12-26 12:52 | ED ---
General Adult HPI - General Chief complaint: Nausea/Vomiting/Diarrhea Stated complaint: Vomiting-diverticulitis Time Seen by Provider: 12/26/16 12:42 Source: patient, RN notes reviewed Mode of arrival: wheelchair Limitations: no limitations - History of Present Illness Initial comments: 51-year-old female presents to the emergency Department chief complaint of epigastric abdominal pain. Patient states she has a history of diverticulitis and it feels much like that. Patient states she's had nausea vomiting with it. Patient states his been since . She started Flagyl and Levaquin that she has a prescription for home to take when this flares up and states she started this on but it just seems to getting worse. Patient states she has a high fever eyes was around 90. Patient was concerned because of her pain so she thought that she should be evaluated. Patient denies any recent fever, chills, shortness of breath, chest pain, back pain, numbness or tingling , dysuria or hematuria, constipation or diarrhea, headaches or visual changes, or any other current symptoms. - Related Data Home Medications Medication Instructions Recorded Confirmed Fluticasone Propionate [Flonase 1 spray EA NOSTRIL DAILY PRN 10/04/14 12/26/16 Allergy Relief] cloNIDine HCL 0.3 mg PO TID 08/19/15 12/26/16 Olopatadine HCl [Patanol] 1 drop BOTH EYES BID 10/24/15 12/26/16 Vortioxetine Hydrobromide 10 mg PO DAILY 10/24/15 12/26/16 [Trintellix] Morphine Sulfate ER [Ms Contin] 60 mg PO Q12H 03/25/16 12/26/16 Hydrochlorothiazide 25 mg PO DAILY PRN 06/14/16 12/26/16 diphenhydrAMINE HCL [Benadryl] 50 mg PO HS PRN 06/14/16 12/26/16 Losartan Potassium [Cozaar] 100 mg PO DAILY 07/17/16 12/26/16 amLODIPine [Norvasc] 10 mg PO HS 09/09/16 12/26/16 HYDROmorphone [Dilaudid] 2 mg PO TID PRN 12/26/16 12/26/16 Allergies Allergy/AdvReac Type Severity Reaction Status Date / Time erythromycin base Allergy Rash/Hives Verified 12/26/16 13:44 [Erythromycin Base] Penicillins Allergy Rash/Hives Verified 12/26/16 13:44 Review of Systems ROS Statement: Those systems with pertinent positive or pertinent negative responses have been documented in the HPI. ROS Other: All systems not noted in ROS Statement are negative. Past Medical History Past Medical History: Cancer, Hypertension Additional Past Medical History / Comment(s): migraines, chronic back pain, hx uterine cancer, colon polyp removal, diverticulitis, meniscus tears History of Any Multi-Drug Resistant Organisms: C-DIFF Date of last positivie culture/infection: 2014 MDRO Source:: stool Past Surgical History: Adenoidectomy, Appendectomy, Section, Cholecystectomy, Hysterectomy, Orthopedic Surgery, Tonsillectomy Additional Past Surgical History / Comment(s): eye surgery bilateral for saliphingooophtomy; Laser eye surgery, right knee surgery. lymph node removed breast it was benign Past Anesthesia/Blood Transfusion Reactions: Postoperative Nausea & Vomiting ( PONV) Past Psychological History: Anxiety, Depression, Panic Disorder, PTSD Smoking Status: Former smoker Past Alcohol Use History: None Reported Past Drug Use History: None Reported - Past Family History Father Family Medical History: Cancer Mother Family Medical History: CVA/TIA Brother(s) Family Medical History: No Reported History (Patient has 3 brothers with diagnosis of small bowel obstruction.) Sister(s) Family Medical History: No Reported History (One sister no major medical problems.) General Exam - General Exam Comments Initial Comments: General: The patient is awake and alert, in no distress, and does not appear acutely ill. Eye: Pupils are equal, round and reactive to light, extra-ocular movements are intact; there is normal conjunctiva bilaterally. No signs of icterus. Ears, nose, mouth and throat: There are moist mucous membranes and no oral lesions. Neck: The neck is supple, there is no tenderness. Cardiovascular: There is a regular rate and rhythm. No murmur, rub or gallop is appreciated. Respiratory: Lungs are clear to auscultation, respirations are non-labored, breath sounds are equal. No wheezes, stridor, rales, or rhonchi. Gastrointestinal: Soft, non-distended, epigastric tenderness of the abdomen without masses or organomegaly noted. There is no rebound or guarding present. No CVA tenderness. Bowel sounds are unremarkable. Back: There is no tenderness to palpation in the midline. There is no obvious deformity. No rashes noted. Musculoskeletal: Normal ROM, no tenderness, There is no pedal edema. There is no calf tenderness or swelling. Sensation intact. Pulses equal bilaterally 2+. Neurological: CN II-XII intact, There are no obvious motor or sensory deficits. Coordination appears grossly intact. Speech is normal. Skin: Skin is warm and dry and no rashes or lesions are noted. Psychiatric: Cooperative, appropriate mood & affect, normal judgment. Limitations: no limitations Course Vital Signs 12/26/16 12/26/16 12/26/16 12:38 13:45 15:08 Temperature 97.6 F Pulse Rate 96 81 117 H Respiratory 20 20 20 Rate Blood Pressure 203/113 197/88 210/91 O2 Sat by Pulse 99 96 95 Oximetry 12/26/16 15:39 Temperature Pulse Rate 116 H Respiratory 20 Rate Blood Pressure 175/99 O2 Sat by Pulse 95 Oximetry EKG Findings - EKG Comments: EKG Findings:: normal sinus rhythm with sinus arrhythmia 78 bpm, normal axis, no atopy, no S-T depressions or elevations, prolonged QT Medical Decision Making - Medical Decision Making 51-year-old female presents for abdominal pain with a history of diverticulitis. At this time patient's lab work and CAT scan is reviewed that does not show any diverticulitis or signs of infection. Patient continues to be tachycardic and hypertensive. A drug screen was on the does not show any narcotics in the patient's system. She does have pill bottles prescribed to her in the room and I did thoroughly examine as well as her maps report. A maps report in the pill bottles that she has it does not seem to match up. We discussed this with the patient. We discussed that most likely she is withdrawing we will give her some narcotics for this will help her so she can continue to take her prescriptions. We did discuss that she is follow-up with her doctor for further evaluation. We did discuss return parameters all her questions. She stated that she understood and she is in agreement this plan. This time she'll be discharged home. - Lab Data Result diagrams: 12/26/16 13:00 12/26/16 13:00 Lab Results 12/26/16 12/26/16 12/26/16 Range/Units 13:00 13:00 13:00 WBC 10.9 H (3.8-10.6) k/uL RBC 5.01 (3.80-5.40) m/uL Hgb 14.3 (11.4-16.0) gm/dL Hct 43.8 (34.0-46.0) % MCV 87.4 (80.0-100.0) fL MCH 28.5 (25.0-35.0) pg MCHC 32.7 (31.0-37.0) g/dL RDW 14.3 (11.5-15.5) % Plt Count 375 (150-450) k/uL Neutrophils % 85 % Lymphocytes % 11 % Monocytes % 3 % Eosinophils % 1 % Basophils % 0 % Neutrophils # 9.2 H (1.3-7.7) k/uL Lymphocytes # 1.1 (1.0-4.8) k/uL Monocytes # 0.3 (0-1.0) k/uL Eosinophils # 0.1 (0-0.7) k/uL Basophils # 0.0 (0-0.2) k/uL PT (9.0-12.0) sec INR (<1.2) APTT (22.0-30.0) sec Sodium 141 (137-145) mmol/L Potassium 4.0 (3.5-5.1) mmol/L Chloride 102 (98-107) mmol/L Carbon Dioxide 26 (22-30) mmol/L Anion Gap 13 mmol/L BUN 12 (7-17) mg/dL Creatinine 0.83 (0.52-1.04) mg/dL Est GFR (MDRD) Af Amer >60 (>60 ml/min/1.73 sqM) Est GFR (MDRD) Non-Af >60 (>60 ml/min/1.73 sqM) Glucose 169 H (74-99) mg/dL Calcium 10.1 (8.4-10.2) mg/dL Magnesium 1.7 (1.6-2.3) mg/dL Total Bilirubin 0.4 (0.2-1.3) mg/dL AST 23 (14-36) U/L ALT 39 (9-52) U/L Alkaline Phosphatase 131 H (38-126) U/L Total Creatine Kinase 30 (30-135) U/L CK-MB (CK-2) 0.3 (0.0-2.4) ng/mL CK-MB (CK-2) Rel Index 1.0 Troponin I <0.012 (0.000-0.034) ng/mL Total Protein 7.4 (6.3-8.2) g/dL Albumin 4.5 (3.5-5.0) g/dL Amylase 78 (30-110) U/L Lipase 100 (23-300) U/L Urine Color Urine Appearance (Clear) Urine pH (5.0-8.0) Ur Specific [place] (1.001-1.035) Urine Protein (Negative) Urine Glucose (UA) (Negative) Urine Ketones (Negative) Urine Blood (Negative) Urine Nitrite (Negative) Urine Bilirubin (Negative) Urine Urobilinogen (<2.0) mg/dL Ur Leukocyte Esterase (Negative) Urine RBC (0-5) /hpf Urine WBC (0-5) /hpf Ur Squamous Epith Cells (0-4) /hpf Amorphous Sediment (None) /hpf Hyaline Casts (0-2) /lpf Urine Mucus (None) /hpf Urine Opiates Screen (NotDetected) Ur Oxycodone Screen (NotDetected) Urine Methadone Screen (NotDetected) Ur Propoxyphene Screen (NotDetected) Ur Barbiturates Screen (NotDetected) U Tricyclic Antidepress (NotDetected) Ur Phencyclidine Scrn (NotDetected) Ur Amphetamines Screen (NotDetected) U Methamphetamines Scrn (NotDetected) U Benzodiazepines Scrn (NotDetected) Urine Cocaine Screen (NotDetected) U Marijuana (THC) Screen (NotDetected) 12/26/16 12/26/16 12/26/16 Range/Units 13:00 14:57 14:57 WBC (3.8-10.6) k/uL RBC (3.80-5.40) m/uL Hgb (11.4-16.0) gm/dL Hct (34.0-46.0) % MCV (80.0-100.0) fL MCH (25.0-35.0) pg MCHC (31.0-37.0) g/dL RDW (11.5-15.5) % Plt Count (150-450) k/uL Neutrophils % % Lymphocytes % % Monocytes % % Eosinophils % % Basophils % % Neutrophils # (1.3-7.7) k/uL Lymphocytes # (1.0-4.8) k/uL Monocytes # (0-1.0) k/uL Eosinophils # (0-0.7) k/uL Basophils # (0-0.2) k/uL PT 10.6 (9.0-12.0) sec INR 1.1 (<1.2) APTT 22.0 (22.0-30.0) sec Sodium (137-145) mmol/L Potassium (3.5-5.1) mmol/L Chloride (98-107) mmol/L Carbon Dioxide (22-30) mmol/L Anion Gap mmol/L BUN (7-17) mg/dL Creatinine (0.52-1.04) mg/dL Est GFR (MDRD) Af Amer (>60 ml/min/1.73 sqM) Est GFR (MDRD) Non-Af (>60 ml/min/1.73 sqM) Glucose (74-99) mg/dL Calcium (8.4-10.2) mg/dL Magnesium (1.6-2.3) mg/dL Total Bilirubin (0.2-1.3) mg/dL AST (14-36) U/L ALT (9-52) U/L Alkaline Phosphatase (38-126) U/L Total Creatine Kinase (30-135) U/L CK-MB (CK-2) (0.0-2.4) ng/mL CK-MB (CK-2) Rel Index Troponin I (0.000-0.034) ng/mL Total Protein (6.3-8.2) g/dL Albumin (3.5-5.0) g/dL Amylase (30-110) U/L Lipase (23-300) U/L Urine Color Yellow Urine Appearance Clear (Clear) Urine pH 8.0 (5.0-8.0) Ur Specific [place] 1.033 (1.001-1.035) Urine Protein 1+ H (Negative) Urine Glucose (UA) Trace H (Negative) Urine Ketones 1+ H (Negative) Urine Blood Negative (Negative) Urine Nitrite Negative (Negative) Urine Bilirubin Negative (Negative) Urine Urobilinogen <2.0 (<2.0) mg/dL Ur Leukocyte Esterase Negative (Negative) Urine RBC 2 (0-5) /hpf Urine WBC 3 (0-5) /hpf Ur Squamous Epith Cells 2 (0-4) /hpf Amorphous Sediment Rare H (None) /hpf Hyaline Casts 1 (0-2) /lpf Urine Mucus Rare H (None) /hpf Urine Opiates Screen Not Detected (NotDetected) Ur Oxycodone Screen Not Detected (NotDetected) Urine Methadone Screen Not Detected (NotDetected) Ur Propoxyphene Screen Not Detected (NotDetected) Ur Barbiturates Screen Not Detected (NotDetected) U Tricyclic Antidepress Not Detected (NotDetected) Ur Phencyclidine Scrn Not Detected (NotDetected) Ur Amphetamines Screen Not Detected (NotDetected) U Methamphetamines Scrn Not Detected (NotDetected) U Benzodiazepines Scrn Not Detected (NotDetected) Urine Cocaine Screen Not Detected (NotDetected) U Marijuana (THC) Screen Not Detected (NotDetected) - Radiology Data Radiology results: report reviewed, image reviewed Disposition Clinical Impression: Opiate withdrawal Disposition: HOME SELF-CARE Condition: Stable Instructions: Opioid Withdrawal (ED) Additional Instructions: Please use medication as discussed. Please follow up with family doctor if symptoms have not improved over the next two days. Please return to the emergency room if your symptoms increase or worsen or for any other concerns. Referrals: Constantine Montenegro DO [Primary Care Provider] - 1-2 days Time of Disposition: 16:19
[2016-12-26 13:21] LABS: Basophils % (A) 0 %; CH 28.1; CHCM 32.3; Eosinophils # (A) 0.1 k/uL (0-0.7); Eosinophils % (A) 1 %; HCT 43.8 % (34.0-46.0); HDW 2.89; HGB 14.3 gm/dL (11.4-16.0); Luc # (Auto) 0.07; Luc % (Auto) 1; Lymphocytes # (A) 1.1 k/uL (1.0-4.8); Lymphocytes % (A) 11 %; MCH 28.5 pg (25.0-35.0); MCHC 32.7 g/dL (31.0-37.0); MCV 87.4 fL (80.0-100.0); Mean Platelet Volume 6.8; Monocytes # (A) 0.3 k/uL (0-1.0); Monocytes % (A) 3 %; Neutrophils # (A) 9.2 k/uL (1.3-7.7); Neutrophils % (A) 85 %; RBC 5.01 m/uL (3.80-5.40); RDW 14.3 % (11.5-15.5); WBC 10.9 k/uL (3.8-10.6); WBC (Perox) 10.27
[2016-12-26 13:25] LABS: ALT 39 U/L (9-52); AST 23 U/L (14-36); Alkaline Phosphatase 131 U/L (38-126); Amylase 78 U/L (30-110); Anion Gap 13 mmol/L; Blood Urea Nitrogen 12 mg/dL (7-17); Calcium 10.1 mg/dL (8.4-10.2); Carbon Dioxide 26 mmol/L (22-30); Chloride 102 mmol/L (98-107); Glucose 169 mg/dL (74-99); Magnesium 1.7 mg/dL (1.6-2.3); Non-African American GFR(MDRD) >60 (>60 ml/min/1.73 sqM); Sodium 141 mmol/L (137-145); Total Bilirubin 0.4 mg/dL (0.2-1.3); Total Protein 7.4 g/dL (6.3-8.2)
[2016-12-26 13:28] LABS: INR 1.1 (<1.2); Prothrombin Time 10.6 sec (9.0-12.0)
[2016-12-26 13:34] LABS: Creatine Kinase 30 U/L (30-135)
--- NOTE | 2016-12-26 13:34 | XR ---
EXAMINATION TYPE: XR chest 2V DATE OF EXAM: 12/26/2016 COMPARISON: Chest x-ray August 25, 2015 HISTORY: Chest and abdominal pain with vomiting TECHNIQUE: Frontal and lateral views of the chest are obtained. FINDINGS: There is chronic parenchymal change without suspicious focal air space opacity, pleural ef fusion, or pneumothorax seen. The cardiac silhouette size is stable and mildly enlarged with atheros clerotic thoracic aorta. The osseous structures are intact. IMPRESSION: Mild cardiomegaly and chronic changes without acute pulmonary process. No significant ch sam from prior.
[2016-12-26 13:47] LABS: Creatine Kinase MB 0.3 ng/mL (0.0-2.4); Troponin I <0.012 ng/mL (0.000-0.034)
[2016-12-26] MEDS ORDERED: RX INFO: IV CONTRAST WAS GIVEN 1 EACH MISC MISCELLANE PRN (14:01)
--- NOTE | 2016-12-26 14:54 | CT ---
EXAMINATION TYPE: CT abdomen pelvis w con DATE OF EXAM: 12/26/2016 HISTORY: Patient complains of LUQ pain, nausea, vomiting, diarrhea, and constipation. Patient has a history of prior diverticulitis. CT DLP: 1559.8mGycm Automated Exposure Control for Dose Reduction was Utilized. CONTRAST: CT scan of the abdomen and pelvis is performed without oral but with IV Contrast, patient injected wi th 100 mL of Omnipaque 300. COMPARISON: CT abdomen and pelvis March 25, 2016 FINDINGS: LUNG BASES: No significant abnormality is appreciated. LIVER/GB: Cholecystectomy clips are redemonstrated. Liver is diffusely low dense consistent with fatt y infiltration. PANCREAS: No significant abnormality is seen. SPLEEN: No significant abnormality is seen. ADRENALS: No significant abnormality is seen. KIDNEYS: No significant abnormality is seen. BOWEL: Evaluation of bowel is suboptimal secondary to lack of enteric contrast. There is no suspiciou s small or large bowel dilatation. There are some diverticula in the left and sigmoid colon without C T evidence for acute diverticulitis. UTERUS/ADNEXA: Uterus is surgically absent. Surgical clips left pelvis is redemonstrated on axial graham ge [id number]. LYMPH NODES: No greater than 1cm abdominal or pelvic lymph nodes are appreciated. OSSEOUS STRUCTURES: There is multilevel spurring in the visualized lower thoracic spine. There is mod erate disc space narrowing L5-S1 level. OTHER: No significant additional abnormality is seen. IMPRESSION: No bowel obstruction is present. No significant new or acute finding is seen to account f or patient's clinical symptoms.
[2016-12-26] MEDS ORDERED: MAG HYDROX/AL HYDROX/SIMETH 30 ML, HYOSCYAMINE ELIXIR 10 ML, CIMETIDINE HCL 300 MG, LID... PO STA ×4 (14:59)
[2016-12-26 15:05] LABS: Amorphous Sediment,Urine Rare /hpf; Appearance,Urine Clear (Clear); Bilirubin,Urine Negative (Negative); Glucose,Urine (UA) Trace (Negative); Ketones,Urine 1+ (Negative); Leukocyte Esterase,Urine Negative (Negative); Mucus,Urine Rare /hpf; Nitrite,Urine Negative (Negative); Particle Count 2140; Protein,Urine 1+ (Negative); RBC,Urine 2 /hpf (0-5); Specific Gravity,Urine 1.033 (1.001-1.035); Squamous Epithelial Cell,Urine 2 /hpf (0-4); UA Billing (MACRO vs. MICRO) MICRO; Urobilinogen,Urine <2.0 mg/dL (<2.0); WBC,Urine 3 /hpf (0-5)
[2016-12-26] MEDS ORDERED: METOPROLOL TARTRATE 5 MG/5 ML VIAL IVP STA (15:07)
[2016-12-26 16:30] VITALS: BP 170/81; PULSE 115; RESP 18; TEMP 98.6
== END 2016-12-26 16:47 | disposition home or self-care (01) ==
LOC: EC 12:35
DX: F11.23 Opioid dependence with withdrawal (principal); R00.0 Tachycardia, unspecified; I10 Essential (primary) hypertension; G89.29 Other chronic pain; F32.9 Major depressive disorder, single episode, unspecified; Z87.891 Personal history of nicotine dependence; Z79.899 Other long term (current) drug therapy; Z88.0 Allergy status to penicillin; Z88.1 Allergy status to other antibiotic agents; Z85.42 Personal history of malignant neoplasm of other parts of uterus; Z90.710 Acquired absence of both cervix and uterus
CPT/HCPCS: 99284; 96374; 96375 ×2; 96376; 96361 ×3; 36415; 93005; 80053; 82150; 82550; 82553; 83690; 83735; 84484; 85025; 85610; 85730; 81001; 80306; 71020; 74177; J2405; J1170; Q9967

== ENCOUNTER 2017-04-15 15:19 | Emergency (ER) | payer BC, MEDICARE ==
--- NOTE | 2017-04-15 15:46 | ED ---
General Adult HPI - General Chief complaint: Fever Stated complaint: Cough Time Seen by Provider: 04/15/17 15:36 Source: patient, RN notes reviewed, old records reviewed Mode of arrival: wheelchair Limitations: no limitations - History of Present Illness Initial comments: Chief complaint and history of present illness is a 52-year-old female here with a complaint of fever, muscle aches and pains dry cough headache. The patient did not get a flu shot this year. - Related Data Home Medications Medication Instructions Recorded Confirmed Fluticasone Propionate [Flonase 1 spray EA NOSTRIL DAILY PRN 10/04/14 04/15/17 Allergy Relief] cloNIDine HCL 0.3 mg PO TID 08/19/15 04/15/17 Olopatadine HCl [Patanol] 1 drop BOTH EYES BID 10/24/15 04/15/17 Vortioxetine Hydrobromide 10 mg PO DAILY 10/24/15 04/15/17 [Trintellix] Morphine Sulfate ER [Ms Contin] 60 mg PO Q12H 03/25/16 04/15/17 Hydrochlorothiazide 25 mg PO DAILY PRN 06/14/16 04/15/17 diphenhydrAMINE HCL [Benadryl] 50 mg PO HS PRN 06/14/16 04/15/17 oxyCODONE-APAP 10-325MG [Percocet 1 tab PO TID PRN 04/15/17 04/15/17 10-325 mg] Previous Rx's Medication Instructions Recorded Ondansetron Odt [Zofran Odt] 4 mg PO Q8HR PRN #10 tab 04/15/17 Oseltamivir [Tamiflu] 75 mg PO Q12HR #10 cap 04/15/17 Allergies Allergy/AdvReac Type Severity Reaction Status Date / Time erythromycin base Allergy Rash/Hives Verified 04/15/17 15:45 [Erythromycin Base] Penicillins Allergy Rash/Hives Verified 04/15/17 15:45 Review of Systems ROS Statement: Those systems with pertinent positive or pertinent negative responses have been documented in the HPI. Review of systems. Patient has a headache no visual acuity changes says her ear sore with a sore throat, no stiff neck. She does have a cough. No nausea no vomiting no diarrhea. No skin rashes. All systems are reviewed. Past medical processing significant for cervical cancer, hypertension chronic back pain. Patient surgeries include tonsils, adenoids, appendectomy, , cholecystectomy, total hysterectomy, RK bilateral corneal surgeries. An orthopedic surgery. The patient's also had a lymph node biopsy which was benign. Breast biopsy benign. Patient's family history father had lung cancer. Patient has ALLERGIES to erythromycin base and penicillin. She denies smoking denies drinking. ROS Other: All systems not noted in ROS Statement are negative. Past Medical History Past Medical History: Cancer, Hypertension Additional Past Medical History / Comment(s): migraines, chronic back pain, hx uterine cancer, colon polyp removal, diverticulitis, meniscus tears History of Any Multi-Drug Resistant Organisms: C-DIFF Date of last positivie culture/infection: 2014 MDRO Source:: stool Past Surgical History: Adenoidectomy, Appendectomy, Section, Cholecystectomy, Hysterectomy, Orthopedic Surgery, Tonsillectomy Additional Past Surgical History / Comment(s): eye surgery bilateral for saliphingooophtomy; Laser eye surgery, right knee surgery. lymph node removed breast it was benign Past Anesthesia/Blood Transfusion Reactions: Postoperative Nausea & Vomiting ( PONV) Past Psychological History: Anxiety, Depression, Panic Disorder, PTSD Smoking Status: Former smoker Past Alcohol Use History: None Reported Past Drug Use History: None Reported - Past Family History Father Family Medical History: Cancer Mother Family Medical History: CVA/TIA Brother(s) Family Medical History: No Reported History (Patient has 3 brothers with diagnosis of small bowel obstruction.) Sister(s) Family Medical History: No Reported History (One sister no major medical problems.) General Exam - General Exam Comments Initial Comments: General: The patient is awake and alert, complains of approximately 2 days of fever muscle aches and pains headache sore throat. The patient did negative flu shot this year. Vital signs shows temperature 101.0 pulse 100 respiratory rate 20 pulse ox 96% room air blood pressure 180/90. Eye: Pupils are equal, round and reactive to light, extra-ocular movements are intact ; there is normal conjunctiva bilaterally. No signs of icterus. Ears, nose, mouth and throat: Dry mucous membranes, no lesions. Neck: The neck is supple, there is no tenderness, no anterior cervical lymphadenopathy. Thyroid not enlarged. Cardiovascular: There is a regular rate and rhythm. No murmur, rub or gallop is appreciated. Respiratory: Lungs are clear to auscultation, respirations are non-labored, breath sounds are equal. No wheezes, stridor, rales, or rhonchi. Dry cough Gastrointestinal: Soft, non-distended, non-tender abdomen without masses or organomegaly noted. There is no rebound or guarding present. No CVA tenderness. Bowel sounds are unremarkable. No nausea no vomiting no diarrhea Back: There is no tenderness to palpation in the midline. There is no obvious deformity. Generalized muscle aches and pains. Musculoskeletal: Normal ROM, no tenderness, There is no pedal edema. There is no calf tenderness or swelling. Sensation intact. Neurological: No neuro deficits Skin: Skin is warm and dry and no rashes or lesions are noted. Limitations: no limitations Course Vital Signs 04/15/17 04/15/17 15:21 16:23 Temperature 101.0 F H 99.2 F Pulse Rate 100 101 H Respiratory 20 20 Rate Blood Pressure 180/90 122/46 O2 Sat by Pulse 96 99 Oximetry Medical Decision Making - Medical Decision Making Medical decision making; this is a 52-year-old female who comes emergency room with flu-type symptoms, fever, muscle aches pains headache sore throat. No flu shot this year. Chest x-ray was done and reviewed by radiologist his impression is; no acute cardiopulmonary process. As read by Dr. davis. Patient's labs show positive influenza A. The patient will receive Tylenol, Zofran and Tamiflu in emergency room. She will be discharged on Tamiflu be taken 2 tablets daily for 5 days follow-up with her family physician. Increase fluids. Use Zofran to control nausea so that significant keep fluids in and pain medications down. - Lab Data Lab Results 04/15/17 Range/Units 16:25 Influenza Type A RNA Detected H (Not Detectd) Influenza Type B (PCR) Not Detected (Not Detectd) Disposition Clinical Impression: Influenza A Disposition: HOME SELF-CARE Condition: Fair Instructions: Influenza (ED) Additional Instructions: Use Zofran, increase fluids, take Tamiflu one tablet twice a day for 5 days follow-up family physician. Return emergency room if he have any changes. Prescriptions: Ondansetron Odt [Zofran Odt] 4 mg PO Q8HR PRN #10 tab PRN Reason: Nausea Oseltamivir [Tamiflu] 75 mg PO Q12HR #10 cap Referrals: None,Stated [Primary Care Provider] - 1-2 days Time of Disposition: 17:04
--- NOTE | 2017-04-15 16:09 | XR ---
EXAMINATION TYPE: XR chest 2V DATE OF EXAM: 04/15/2017 COMPARISON: December 26, 2016. HISTORY: Chest pain TECHNIQUE: Frontal and lateral views of the chest are obtained. FINDINGS: There is no focal air space opacity, pleural effusion, or pneumothorax seen. Linear strand of atelectasis is identified at 2 points in the right lower lobe. The cardiac silhouette size is wit hin normal limits. The osseous structures are intact. IMPRESSION: No acute cardiopulmonary process.
[2017-04-15] MEDS ORDERED: ONDANSETRON 4 MG ODT STARTER PACK 2 TAB BTL PO STA (17:01)
[2017-04-15] MEDS ORDERED: OSELTAMIVIR 75 MG CAP PO STA (17:01)
[2017-04-15] MEDS ORDERED: ACETAMINOPHEN TAB 500 MG TAB PO STA (17:02)
[2017-04-15] MEDS ORDERED: SODIUM CHLORIDE 0.9% 500 ML IV STA (17:06)
[2017-04-15 18:40] VITALS: BP 123/53; PULSE 89; RESP 18; TEMP 100
== END 2017-04-15 18:39 | disposition home or self-care (01) ==
LOC: EC 15:19
DX: J10.1 Influenza due to other identified influenza virus with other respiratory manifestations (principal); I10 Essential (primary) hypertension; G89.29 Other chronic pain; F32.9 Major depressive disorder, single episode, unspecified; Z87.891 Personal history of nicotine dependence; Z79.891 Long term (current) use of opiate analgesic; Z79.899 Other long term (current) drug therapy; Z88.0 Allergy status to penicillin; Z88.1 Allergy status to other antibiotic agents; Z85.42 Personal history of malignant neoplasm of other parts of uterus; Z90.710 Acquired absence of both cervix and uterus
CPT/HCPCS: 87502; 71046; 99284; 96360; S0119

== ENCOUNTER 2017-07-26 13:25 | Emergency (ER) | payer MEDICARE ==
[2017-07-26] MEDS ORDERED: SODIUM CHLORIDE 0.9% 2,000 ML IV STA (13:41)
[2017-07-26] MEDS ORDERED: ONDANSETRON 4 MG/2 ML VIAL IVP STA (13:41)
[2017-07-26] MEDS ORDERED: cloNIDine HCL 0.1 MG TAB PO STA ×2 (13:42→16:17)
[2017-07-26] MEDS ORDERED: MORPHINE SULFATE 4 MG/ML SYRINGE IVP STA (13:42)
--- NOTE | 2017-07-26 13:45 | ED ---
Nausea/Vomiting/Diarrhea HPI - General Chief complaint: Nausea/Vomiting/Diarrhea Stated complaint: vomiting Time Seen by Provider: 07/26/17 13:36 Source: patient, family, RN notes reviewed Mode of arrival: wheelchair Limitations: no limitations - History of Present Illness Initial comments: 52-year-old female presents emergency from chief complaint of nausea vomiting and diarrhea. Patient states started yesterday. Patient states that she's not getting any better and she's been vomiting bile. Patient was admitted one month ago for some her symptoms. Patient states that she has diffuse abdominal pain. She does admit that she still passing gas. She also admits that she's had increased urinary frequency but states that she was recent started on hydrochlorothiazide. Patient denies any current chest pain or shortness breath denies any headache or dizziness. Patient's had prior abdominal surgeries including cholecystomy, appendectomy and hysterectomy. - Related Data Home Medications Medication Instructions Recorded Confirmed cloNIDine HCL 0.3 mg PO TID 08/19/15 07/26/17 Olopatadine HCl [Patanol] 1 drop BOTH EYES BID 10/24/15 07/26/17 Hydrochlorothiazide 25 mg PO DAILY 06/14/16 07/26/17 amLODIPine [Norvasc] 10 mg PO DAILY 07/26/17 07/26/17 Previous Rx's Medication Instructions Recorded Pantoprazole [Protonix] 40 mg PO DAILY #30 tablet. 06/10/17 Metoclopramide [Reglan] 10 mg PO TID PRN #15 tab 07/26/17 Ondansetron Odt [Zofran Odt] 4 mg PO Q8HR PRN #10 tab 07/26/17 Allergies Allergy/AdvReac Type Severity Reaction Status Date / Time erythromycin base Allergy Rash/Hives Verified 07/26/17 14:12 [Erythromycin Base] Penicillins Allergy Rash/Hives Verified 07/26/17 14:12 Review of Systems ROS Statement: Those systems with pertinent positive or pertinent negative responses have been documented in the HPI. ROS Other: All systems not noted in ROS Statement are negative. Past Medical History Past Medical History: Cancer, Hypertension Additional Past Medical History / Comment(s): past migraines, chronic back pain , hx uterine cancer, small hiatal hernia(per egd)colon polyp removal, diverticulitis, meniscus tears History of Any Multi-Drug Resistant Organisms: None Reported Date of last positivie culture/infection: 2014 MDRO Source:: stool Past Surgical History: Adenoidectomy, Appendectomy, Section, Cholecystectomy, Hysterectomy, Orthopedic Surgery, Tonsillectomy Additional Past Surgical History / Comment(s): bilateral saliphingooophtomy; Laser eye surgery, right knee surgery, egd, colonoscopy/polypectomy Past Anesthesia/Blood Transfusion Reactions: Postoperative Nausea & Vomiting ( PONV) Past Psychological History: Anxiety, Depression, Panic Disorder, PTSD Smoking Status: Former smoker - Past Family History Father Family Medical History: Cancer Additional Family Medical History / Comment(s): Father from complications of agent orange exposure. Mother Family Medical History: CVA/TIA Additional Family Medical History / Comment(s): Mother is alive at age 85 with history of hypertension and stroke. Brother(s) Family Medical History: No Reported History (Patient has 3 brothers with diagnosis of small bowel obstruction.) Additional Family Medical History / Comment(s): Patient has total of 3 brothers and one is been diagnosed with small bowel obstruction. Sister(s) Family Medical History: No Reported History (One sister no major medical problems.) Additional Family Medical History / Comment(s): Patient has 1 sister with no major medical problems. General Exam Limitations: no limitations General appearance: alert, in no apparent distress Head exam: Present: atraumatic, normocephalic, normal inspection Eye exam: Present: normal appearance, PERRL, EOMI. Absent: scleral icterus, conjunctival injection, periorbital swelling Neck exam: Present: normal inspection. Absent: tenderness, meningismus, lymphadenopathy Respiratory exam: Present: normal lung sounds bilaterally. Absent: respiratory distress, wheezes, rales, rhonchi, stridor Cardiovascular Exam: Present: regular rate, normal rhythm, normal heart sounds. Absent: systolic murmur, diastolic murmur, rubs, gallop, clicks GI/Abdominal exam: Present: soft, tenderness (Diffuse kcow-so-jndeftby), normal bowel sounds. Absent: distended, guarding, rebound, rigid Back exam: Absent: CVA tenderness (R), CVA tenderness (L) Skin exam: Present: warm, dry, intact, normal color. Absent: rash Course Vital Signs 07/26/17 07/26/17 07/26/17 13:31 14:00 14:27 Temperature 97.1 F L Pulse Rate 96 85 Respiratory 20 18 Rate Blood Pressure 181/112 182/94 188/86 O2 Sat by Pulse 99 98 Oximetry 07/26/17 15:23 Temperature Pulse Rate 88 Respiratory 18 Rate Blood Pressure 178/79 O2 Sat by Pulse 99 Oximetry - Reevaluation(s) Reevaluation #1: 07/26/17 15:44 Patient was reevaluated and did not feel much improved after Zofran she was given additional Benadryl and Reglan which has helped. She states that it's been improving her symptoms. Patient was updated on lab results which are essentially unremarkable. Medical Decision Making - Medical Decision Making 52-year-old female presented for nausea vomiting. Patient had lab work was hydrated and given antiemetics. She has not vomited after antiemetics she does feel improved. Patient will be discharged with Reglan and Zofran. Patient advised to follow-up tomorrow with PCP and return for any worsening symptoms. - Lab Data Result diagrams: 07/26/17 13:49 07/26/17 13:49 Lab Results 07/26/17 07/26/17 Range/Units 13:49 13:49 WBC 12.9 H (3.8-10.6) k/uL RBC 5.28 (3.80-5.40) m/uL Hgb 15.1 (11.4-16.0) gm/dL Hct 44.8 (34.0-46.0) % MCV 84.9 (80.0-100.0) fL MCH 28.6 (25.0-35.0) pg MCHC 33.8 (31.0-37.0) g/dL RDW 14.6 (11.5-15.5) % Plt Count 387 (150-450) k/uL Neutrophils % 86 % Lymphocytes % 9 % Monocytes % 3 % Eosinophils % 1 % Basophils % 0 % Neutrophils # 11.0 H (1.3-7.7) k/uL Lymphocytes # 1.2 (1.0-4.8) k/uL Monocytes # 0.4 (0-1.0) k/uL Eosinophils # 0.2 (0-0.7) k/uL Basophils # 0.1 (0-0.2) k/uL Sodium 147 H (137-145) mmol/L Potassium 3.5 (3.5-5.1) mmol/L Chloride 100 (98-107) mmol/L Carbon Dioxide 27 (22-30) mmol/L Anion Gap 20 mmol/L BUN 8 (7-17) mg/dL Creatinine 0.70 (0.52-1.04) mg/dL Est GFR (CKD-EPI)AfAm >90 (>60 ml/min/1.73 sqM) Est GFR (CKD-EPI)NonAf >90 (>60 ml/min/1.73 sqM) Glucose 180 H (74-99) mg/dL Calcium 10.7 H (8.4-10.2) mg/dL Total Bilirubin 0.8 (0.2-1.3) mg/dL AST 40 H (14-36) U/L ALT 53 H (9-52) U/L Alkaline Phosphatase 123 (38-126) U/L Total Protein 8.0 (6.3-8.2) g/dL Albumin 5.0 (3.5-5.0) g/dL Amylase 104 (30-110) U/L Lipase 116 (23-300) U/L Disposition Clinical Impression: Nausea & vomiting, Abdominal pain Disposition: HOME SELF-CARE Condition: Stable Instructions: Acute Nausea and Vomiting (ED) Additional Instructions: Please return to the Emergency Department if symptoms worsen or any other concerns. Prescriptions: Metoclopramide [Reglan] 10 mg PO TID PRN #15 tab PRN Reason: GERD Ondansetron Odt [Zofran Odt] 4 mg PO Q8HR PRN #10 tab PRN Reason: Nausea Is patient prescribed a controlled substance at d/c from ED?: No Referrals: Aroldo Dash MD [Primary Care Provider] - 1-2 days Time of Disposition: 15:47
[2017-07-26 14:00] LABS: Basophils # (A) 0.1 k/uL (0-0.2); Basophils % (A) 0 %; Eosinophils # (A) 0.2 k/uL (0-0.7); Eosinophils % (A) 1 %; HCT 44.8 % (34.0-46.0); HGB 15.1 gm/dL (11.4-16.0); Lymphocytes # (A) 1.2 k/uL (1.0-4.8); Lymphocytes % (A) 9 %; MCH 28.6 pg (25.0-35.0); MCHC 33.8 g/dL (31.0-37.0); MCV 84.9 fL (80.0-100.0); Mean Platelet Volume 6.8; Monocytes # (A) 0.4 k/uL (0-1.0); Monocytes % (A) 3 %; Neutrophils % (A) 86 %; Platelet Count 387 k/uL (150-450); RBC 5.28 m/uL (3.80-5.40); RDW 14.6 % (11.5-15.5); WBC 12.9 k/uL (3.8-10.6)
[2017-07-26 14:12] LABS: ALT 53 U/L (9-52); AST 40 U/L (14-36); Alkaline Phosphatase 123 U/L (38-126); Amylase 104 U/L (30-110); Anion Gap 20 mmol/L; Blood Urea Nitrogen 8 mg/dL (7-17); Calcium 10.7 mg/dL (8.4-10.2); Carbon Dioxide 27 mmol/L (22-30); Chloride 100 mmol/L (98-107); Glucose 180 mg/dL (74-99); Lipase 116 U/L (23-300); Potassium 3.5 mmol/L (3.5-5.1); Sodium 147 mmol/L (137-145); Total Bilirubin 0.8 mg/dL (0.2-1.3)
[2017-07-26 14:32] VITALS: RESP 18
--- NOTE | 2017-07-26 14:32 | XR ---
Abdomen HISTORY: Vomiting and pain Frontal view of the abdomen submitted on 2 images and correlated prior exam 07/23/2016, CT abdomen pel vis 06/07/2017 Surgical clips again noted in the right upper quadrant. Lung bases are stable. There is no evident pn eumoperitoneum or bowel obstruction. Surgical clips present in the left hemipelvis. The liver is enla rged. There is a spinal curvature, degenerative disc changes in the visualized spine. IMPRESSION: Nonspecific bowel gas pattern. Hepatomegaly. Postop changes. Follow-up as indicated.
[2017-07-26] MEDS ORDERED: METOCLOPRAMIDE 5 MG/ML 2 ML VIAL IVP STA (15:03)
[2017-07-26] MEDS ORDERED: diphenhydrAMINE 50 MG/ML 1 ML VIAL IVP STA (15:03)
[2017-07-26] MEDS ORDERED: LORazepam 2 MG/ML INJ IV STA (16:16)
[2017-07-26 16:23] LABS: Appearance,Urine Clear (Clear); Bilirubin,Urine Negative (Negative); Blood,Urine Negative (Negative); Color,Urine Yellow; Glucose,Urine (UA) Trace (Negative); Hyaline Casts,Urine 12 /lpf (0-2); Ketones,Urine 1+ (Negative); Leukocyte Esterase,Urine Small (Negative); Mucus,Urine Rare /hpf; Nitrite,Urine Negative (Negative); Protein,Urine 2+ (Negative); RBC,Urine 1 /hpf (0-5); Squamous Epithelial Cell,Urine 1 /hpf (0-4); Urobilinogen,Urine <2.0 mg/dL (<2.0); WBC,Urine 8 /hpf (0-5)
[2017-07-26 16:51] VITALS: BP 192/81; PULSE 99; TEMP 98.4
== END 2017-07-26 16:50 | disposition home or self-care (01) ==
LOC: EC 13:25
DX: R11.2 Nausea with vomiting, unspecified (principal); R10.84 Generalized abdominal pain; R19.7 Diarrhea, unspecified; R14.3 Flatulence; R35.0 Frequency of micturition; I10 Essential (primary) hypertension; Z87.891 Personal history of nicotine dependence; Z79.899 Other long term (current) drug therapy; Z88.0 Allergy status to penicillin; Z88.1 Allergy status to other antibiotic agents; Z85.42 Personal history of malignant neoplasm of other parts of uterus; Z90.49 Acquired absence of other specified parts of digestive tract; Z90.710 Acquired absence of both cervix and uterus; Z83.79 Family history of other diseases of the digestive system
CPT/HCPCS: 36415; 80053; 82150; 83690; 85025; 81001; 74018; 99284; 96374; 96375 ×4; 96361 ×2; J2060; J2270; J1200; J2765; J2405

== ENCOUNTER 2018-03-09 18:41 | Emergency (ER) | payer MEDICARE ==
[2018-03-09] MEDS ORDERED: FAMOTIDINE 20 MG/2 ML VIAL IV STA (18:57)
[2018-03-09] MEDS ORDERED: methylPREDNISolone SOD SUCCI 125 MG/2 ML VIAL IV STA (18:57)
[2018-03-09] MEDS ORDERED: diphenhydrAMINE 50 MG/ML 1 ML VIAL IVP STA (18:57)
--- NOTE | 2018-03-09 19:07 | ED ---
Allergic Reaction HPI - General Chief complaint: Allergic Reaction Stated complaint: allergic reaction/ANGELITO Time Seen by Provider: 03/09/18 18:53 Source: patient, RN notes reviewed Mode of arrival: wheelchair Limitations: no limitations - History of Present Illness Initial Comments: This is a 53-year-old female who states she had a reaction to eating [employer] today. He states she took 2 bites of it started developing swelling on some difficulty breathing and swallowing. Is Somewhat Better since Then She Had No Rash on Her Extremities No Chest Pain Shortness Breath Fevers Chills Nausea Vomiting Sweats or Other Symptoms. She Has Had No Prior Reaction to This Type of Food and She has eaten it often MD Complaint: allergic reaction - Related Data Home Medications Medication Instructions Recorded Confirmed cloNIDine HCL 0.3 mg PO TID 08/19/15 03/09/18 Olopatadine HCl [Patanol] 1 drop BOTH EYES BID 10/24/15 03/09/18 Hydrochlorothiazide [Hydrodiuril] 50 mg PO DAILY 03/09/18 03/09/18 Morphine Sulfate ER [Ms Contin] 15 mg PO DAILY 03/09/18 03/09/18 Vortioxetine Hydrobromide 10 mg PO DAILY 03/09/18 03/09/18 [Trintellix] oxyCODONE-APAP 10-325MG [Percocet 1 tab PO 5XD PRN 03/09/18 03/09/18 10-325 mg] Previous Rx's Medication Instructions Recorded EPINEPHrine [Epipen 2-Eder] 0.3 mg IJ ONCE #1 auto.injct 03/09/18 predniSONE 20 mg PO BID #10 tab 03/09/18 Allergies Allergy/AdvReac Type Severity Reaction Status Date / Time erythromycin base Allergy Rash/Hives Verified 03/09/18 20:00 [Erythromycin Base] Penicillins Allergy Rash/Hives Verified 03/09/18 20:00 Review of Systems ROS Statement: Those systems with pertinent positive or pertinent negative responses have been documented in the HPI. ROS Other: All systems not noted in ROS Statement are negative. Past Medical History Past Medical History: Cancer, Hypertension Additional Past Medical History / Comment(s): past migraines, chronic back pain , hx uterine cancer, small hiatal hernia(per egd)colon polyp removal, diverticulitis, meniscus tears History of Any Multi-Drug Resistant Organisms: None Reported Date of last positivie culture/infection: 2015 MDRO Source:: stool Past Surgical History: Adenoidectomy, Appendectomy, Section, Cholecystectomy, Hysterectomy, Orthopedic Surgery, Tonsillectomy Additional Past Surgical History / Comment(s): bilateral saliphingooophtomy; Laser eye surgery, right knee surgery, egd, colonoscopy/polypectomy Past Anesthesia/Blood Transfusion Reactions: Postoperative Nausea & Vomiting ( PONV) Past Psychological History: Anxiety, Depression, Panic Disorder, PTSD Smoking Status: Former smoker Past Alcohol Use History: None Reported Past Drug Use History: None Reported - Past Family History Father Family Medical History: Cancer Additional Family Medical History / Comment(s): Father from complications of agent orange exposure. Mother Family Medical History: CVA/TIA Additional Family Medical History / Comment(s): Mother is alive at age 85 with history of hypertension and stroke. Brother(s) Family Medical History: No Reported History (Patient has 3 brothers with diagnosis of small bowel obstruction.) Additional Family Medical History / Comment(s): Patient has total of 3 brothers and one is been diagnosed with small bowel obstruction. Sister(s) Family Medical History: No Reported History (One sister no major medical problems.) Additional Family Medical History / Comment(s): Patient has 1 sister with no major medical problems. General Exam - General Exam Comments Initial Comments: This is a well-developed well-nourished awake alert oriented 3 female Limitations: no limitations General appearance: alert, anxious Head exam: Present: atraumatic, normocephalic, normal inspection Eye exam: Present: normal appearance, PERRL, EOMI. Absent: scleral icterus, conjunctival injection, periorbital swelling ENT exam: Present: mucous membranes moist, other (Posterior pharyngeal hyperemia ) Neck exam: Present: full ROM, other (No stridor. Bruise at this time are some prominence of the anterior neck more on the left than the right.). Absent: tenderness, meningismus, lymphadenopathy Respiratory exam: Present: normal lung sounds bilaterally. Absent: respiratory distress, wheezes, rales, rhonchi, stridor Cardiovascular Exam: Present: regular rate, normal rhythm, normal heart sounds. Absent: systolic murmur, diastolic murmur, rubs, gallop, clicks GI/Abdominal exam: Present: soft, normal bowel sounds. Absent: distended, tenderness, guarding, rebound, rigid Extremities exam: Present: normal inspection, full ROM, normal capillary refill. Absent: tenderness, pedal edema, joint swelling, calf tenderness Back exam: Present: normal inspection Neurological exam: Present: alert, oriented X3, CN II-XII intact Psychiatric exam: Present: normal affect, normal mood Skin exam: Present: warm, dry, intact, normal color. Absent: rash Course Vital Signs 03/09/18 18:44 Temperature 98.1 F Pulse Rate 80 Respiratory 24 Rate Blood Pressure 138/85 O2 Sat by Pulse 98 Oximetry Medical Decision Making - Medical Decision Making Patient is feeling much improved after the initial treatment. She'll be discharged on appropriate medication is cautioned about drinking hot beverages. She'll be discharged. - Radiology Data Radiology results: report reviewed (I did review the imaging no evidence of acute findings.), image reviewed Disposition Clinical Impression: Allergic reaction, Food allergy Disposition: HOME SELF-CARE Condition: Good Instructions: Food Allergy (ED) Prescriptions: EPINEPHrine [Epipen 2-Eder] 0.3 mg IJ ONCE #1 auto.injct predniSONE 20 mg PO BID #10 tab Is patient prescribed a controlled substance at d/c from ED?: No Referrals: Aroldo Dash MD [Primary Care Provider] - 1-2 days
--- NOTE | 2018-03-09 20:21 | XR ---
EXAMINATION TYPE: XR soft tissue neck DATE OF EXAM: 03/09/2018 COMPARISON: NONE HISTORY: Neck pain TECHNIQUE: 2 views FINDINGS: Epiglottis appears normal. Tonsils and adenoids appear normal. Subglottic trachea appears n ormal. Prevertebral soft tissues appear normal. There is a large hypertrophic anterior bridging osteo phyte at C5-6. IMPRESSION: Moderate hypertrophic spurring at C5-6. It is not clear if this is a factor for the diffi culty swallowing. Normal epiglottis.
--- NOTE | 2018-03-09 20:22 | XR ---
EXAMINATION TYPE: XR chest 2V DATE OF EXAM: 03/09/2018 COMPARISON: 06/10/2017 HISTORY: Chest pain short of breath TECHNIQUE: Frontal and lateral views of the chest are obtained. FINDINGS: There is some linear density at the left lung base. The other lung nelson are clear. There is no heart failure. Heart size is normal. Costophrenic angles are clear. IMPRESSION: Scarring or subsegmental atelectasis at left lung base unchanged. Normal heart.
[2018-03-09 20:40] VITALS: BP 143/79; PULSE 72; RESP 18; TEMP 98
== END 2018-03-09 20:40 | disposition home or self-care (01) ==
LOC: EC 18:41
DX: T78.1XXA Other adverse food reactions, not elsewhere classified, initial encounter (principal); I10 Essential (primary) hypertension; G89.29 Other chronic pain; F32.9 Major depressive disorder, single episode, unspecified; F41.9 Anxiety disorder, unspecified; Z87.891 Personal history of nicotine dependence; Z88.0 Allergy status to penicillin; Z88.1 Allergy status to other antibiotic agents; Z79.891 Long term (current) use of opiate analgesic; Z79.899 Other long term (current) drug therapy; Z85.42 Personal history of malignant neoplasm of other parts of uterus; Z90.710 Acquired absence of both cervix and uterus
CPT/HCPCS: 70360; 71046; 99284; 96374; 96375 ×2; J1200; J2930

== ENCOUNTER → 2019-03-22 | Outpatient (CLI) | payer MEDICARE ==
--- NOTE | 2019-03-22 16:21 | US ---
EXAMINATION TYPE: US venous doppler duplex LE RT DATE OF EXAM: 03/22/2019 4:01 PM COMPARISON: NONE CLINICAL HISTORY: M25.561 PAIN RT KNEE,M17.11 PRIMARY OSTEOARTHRITIS. Pt states right knee pain SIDE PERFORMED: Right TECHNIQUE: The lower extremity deep venous system is examined utilizing real time linear array sonog brenda with graded compression, doppler sonography and color-flow sonography. VESSELS IMAGED: External Iliac Vein (EIV) Common Femoral Vein Deep Femoral Vein Greater Saphenous Vein * Femoral Vein Popliteal Vein Small Saphenous Vein * Proximal Calf Veins (* superficial vessels) Right Leg: Negative for DVT Results called to Mami at Dr's office at time of exam IMPRESSION: 1. Right lower extremity ultrasound negative for deep venous thrombosis.
== END | disposition home or self-care (01) ==
LOC: RADUSWWP 15:40
PROVIDERS: ATTEND Orthopaedic Surgery
DX: M17.11 Unilateral primary osteoarthritis, right knee (principal); I10 Essential (primary) hypertension; F32.9 Major depressive disorder, single episode, unspecified; I80.9 Phlebitis and thrombophlebitis of unspecified site; Z85.9 Personal history of malignant neoplasm, unspecified

== ENCOUNTER → 2019-04-15 | Outpatient (CLI) | payer MEDICARE ==
--- NOTE | 2019-04-17 10:35 | MM ---
Reason for exam: screening (asymptomatic). Last mammogram was performed 4 years and 2 months ago. History: Patient is postmenopausal and has history of ovarian cancer at age 31. Benign excisional biopsy of the left breast, 2009. Physical Findings: A clinical breast exam by your physician is recommended on an annual basis and results should be correlated with mammographic findings. MG Screening Mammo w CAD Bilateral CC and MLO view(s) were taken. XCCL view(s) were taken of the right breast. Prior study comparison: February 12, 2015, mammogram, performed at [facility]. November 11, 2011, mammogram, performed at [facility]. The breast tissue is heterogeneously dense. This may lower the sensitivity of mammography. Benign appearing bilateral calcifications. No suspicious abnormality. Left biopsy marker. No significant changes when compared with prior studies. ASSESSMENT: Benign, BI-RAD 2 RECOMMENDATION: Routine screening mammogram of both breasts in 1 year.
== END | disposition home or self-care (01) ==
LOC: RADMAMWWP 13:25
PROVIDERS: ATTEND Family Medicine
DX: Z12.31 Encounter for screening mammogram for malignant neoplasm of breast (principal)
CPT/HCPCS: 77067

== ENCOUNTER 2019-07-28 23:18 | Emergency (ER) | payer MEDICARE ==
[2019-07-28 23:45] VITALS: TEMP 97.6
[2019-07-29] MEDS ORDERED: DIPH,PERTUS(ACELL)TETVAC-LF 0.5 ML VIAL IM ONE (00:11)
[2019-07-29] MEDS ORDERED: TOPICAL SKIN ADHESIVE 1 EACH AMP TOPICAL STA (00:19)
--- NOTE | 2019-07-29 00:25 | XR ---
EXAMINATION TYPE: XR hand complete RT DATE OF EXAM: 07/29/2019 COMPARISON: 03/03/2015 HISTORY: Laceration with glass TECHNIQUE: 3 views FINDINGS: Metacarpals are intact. I see no fracture nor dislocation. There is no sign of radiopaque f oreign body. There is minor osteoarthritic changes in the DIP joints of the fingers and thumb. Carpal bones are intact. IMPRESSION: No acute abnormality of the right hand. No change.
--- NOTE | 2019-07-29 00:43 | ED ---
General Adult HPI - General Chief complaint: Wound/Laceration Stated complaint: Hand Laceration Time Seen by Provider: 07/29/19 00:04 Source: patient, RN notes reviewed Mode of arrival: ambulatory Limitations: no limitations - History of Present Illness Initial comments: 54-year-old female presents to the emergency department for a chief complaint of laceration to the right hand. Patient states she was walking to her daughter's room and she tripped and broke a glass near her. Patient states it caught her hand and would initially not septic bleeding but now did stop. Patient is up-to-date on tetanus. She denies any difficulty moving her right hand or any numbness or tingling in her right hand. Patient has no other complaints at this time including shortness of breath, chest pain, abdominal pain, nausea or vomiting, headache, or visual changes. - Related Data Home Medications Medication Instructions Recorded Confirmed cloNIDine HCL 0.3 mg PO TID 08/19/15 03/09/18 Olopatadine HCl [Patanol] 1 drop BOTH EYES BID 10/24/15 03/09/18 Hydrochlorothiazide [Hydrodiuril] 50 mg PO DAILY 03/09/18 03/09/18 Morphine Sulfate ER [Ms Contin] 15 mg PO DAILY 03/09/18 03/09/18 Vortioxetine Hydrobromide 10 mg PO DAILY 03/09/18 03/09/18 [Trintellix] oxyCODONE-APAP 10-325MG [Percocet 1 tab PO 5XD PRN 03/09/18 03/09/18 10-325 mg] Previous Rx's Medication Instructions Recorded EPINEPHrine [Epipen 2-Eder] 0.3 mg IJ ONCE #1 auto.injct 03/09/18 predniSONE [Deltasone] 20 mg PO BID #10 tab 03/09/18 Allergies Allergy/AdvReac Type Severity Reaction Status Date / Time erythromycin base Allergy Rash/Hives Verified 07/28/19 23:45 [Erythromycin Base] Penicillins Allergy Rash/Hives Verified 07/28/19 23:45 Review of Systems ROS Statement: Those systems with pertinent positive or pertinent negative responses have been documented in the HPI. ROS Other: All systems not noted in ROS Statement are negative. Past Medical History Past Medical History: Cancer, Hypertension Additional Past Medical History / Comment(s): past migraines, chronic back pain, hx uterine cancer, small hiatal hernia(per egd)colon polyp removal, diverticulitis, meniscus tears History of Any Multi-Drug Resistant Organisms: None Reported Date of last positivie culture/infection: 2014 MDRO Source:: stool Past Surgical History: Adenoidectomy, Appendectomy, Section, Cholecystectomy, Hysterectomy, Orthopedic Surgery, Tonsillectomy Additional Past Surgical History / Comment(s): bilateral saliphingooophtomy; Laser eye surgery, right knee surgery, egd, colonoscopy/polypectomy Past Anesthesia/Blood Transfusion Reactions: Postoperative Nausea & Vomiting (PONV) Past Psychological History: Anxiety, Depression, Panic Disorder, PTSD Smoking Status: Former smoker Past Alcohol Use History: None Reported Past Drug Use History: None Reported - Past Family History Father Family Medical History: Cancer Additional Family Medical History / Comment(s): Father from complications o f agent orange exposure. Mother Family Medical History: CVA/TIA Additional Family Medical History / Comment(s): Mother is alive at age 85 with h istory of hypertension and stroke. Brother(s) Family Medical History: No Reported History (Patient has 3 brothers with diagnosis of small bowel obstruction.) Additional Family Medical History / Comment(s): Patient has total of 3 brothers and one is been diagnosed with small bowel obstruction. Sister(s) Family Medical History: No Reported History (One sister no major medical problems.) Additional Family Medical History / Comment(s): Patient has 1 sister with no major medical problems. General Exam Limitations: no limitations General appearance: alert, in no apparent distress Head exam: Present: atraumatic, normocephalic, normal inspection Eye exam: Present: normal appearance, PERRL, EOMI. Absent: scleral icterus, conjunctival injection, periorbital swelling ENT exam: Present: normal exam, mucous membranes moist Neck exam: Present: normal inspection, full ROM. Absent: tenderness, meningismus, lymphadenopathy Respiratory exam: Present: normal lung sounds bilaterally. Absent: respiratory distress, wheezes, rales, rhonchi, stridor Cardiovascular Exam: Present: regular rate, normal rhythm, normal heart sounds. Absent: systolic murmur, diastolic murmur, rubs, gallop, clicks Extremities exam: Present: other (superficial laceration noted to the hypothenar eminence of the right hand. Full range of motion of the right hand. Wound is superficial and flap-like. I do not see any evidence of foreign body.) Course Vital Signs 07/28/19 23:39 Temperature 97.6 F Pulse Rate 83 Respiratory 20 Rate Blood Pressure 117/75 O2 Sat by Pulse 96 Oximetry Procedures - Laceration Laceration #1 Consent Obtained: verbal consent Indication: laceration Site: hand Size (cm): 1 Description: flap Depth: simple, single layer Pre-repair: wound explored, irrigated extensively Type of Sutures: other (Dermabond) Medical Decision Making - Medical Decision Making X-ray of the right hand shows no acute abnormality. No change. No sign of radiopaque foreign body. Tetanus is updated. Dermabond was applied. Patient will follow up with primary care and return if she has any worsening symptoms. Discussed monitoring for signs of infection. Disposition Clinical Impression: Laceration Disposition: HOME SELF-CARE Condition: Good Instructions (If sedation given, give patient instructions): Laceration (ED), Skin Adhesive Care (ED) Additional Instructions: Please monitor for any signs of infection. Let Steri-Strips fall off on their own. Return to the emergency department for any worsening symptoms. Is patient prescribed a controlled substance at d/c from ED?: No Referrals: Aroldo Dash MD [Primary Care Provider] - 1-2 days Time of Disposition: 00:42
[2019-07-29 00:48] VITALS: BP 133/73; PULSE 77; RESP 18
== END 2019-07-29 00:48 | disposition home or self-care (01) ==
LOC: EC 23:18
DX: S61.411A Laceration without foreign body of right hand, initial encounter (principal); I10 Essential (primary) hypertension; G43.909 Migraine, unspecified, not intractable, without status migrainosus; F41.9 Anxiety disorder, unspecified; F32.9 Major depressive disorder, single episode, unspecified; F43.10 Post-traumatic stress disorder, unspecified; Z23 Encounter for immunization; Z87.891 Personal history of nicotine dependence; Z85.42 Personal history of malignant neoplasm of other parts of uterus; Z79.891 Long term (current) use of opiate analgesic; Z79.899 Other long term (current) drug therapy; Z88.1 Allergy status to other antibiotic agents; Z88.0 Allergy status to penicillin; W01.110A Fall on same level from slipping, tripping and stumbling with subsequent striking against sharp glass, initial encounter; Y92.009 Unspecified place in unspecified non-institutional (private) residence as the place of occurrence of the external cause; Y93.01 Activity, walking, marching and hiking
CPT/HCPCS: 12001; 90471; 90715; 99283

== ENCOUNTER → 2020-01-02 | Outpatient (CLI) | payer MEDICARE ==
--- NOTE | 2020-01-02 16:53 | US ---
EXAMINATION TYPE: US venous doppler duplex LE LT DATE OF EXAM: 01/02/2020 4:40 PM COMPARISON: None. CLINICAL HISTORY: M25.562 Pain in left knee, I80.9. SIDE PERFORMED: Left TECHNIQUE: The lower extremity deep venous system is examined utilizing real time linear array sonog brenda with graded compression, doppler sonography and color-flow sonography. VESSELS IMAGED: External Iliac Vein (EIV) Common Femoral Vein Deep Femoral Vein Greater Saphenous Vein * Femoral Vein Popliteal Vein Small Saphenous Vein * Proximal Calf Veins (* superficial vessels) Left Leg: Negative for DVT Grayscale, color doppler, spectral doppler imaging performed of the deep veins of the left lower extr emity. There is normal flow, compressibility, vascular waveforms. IMPRESSION: No ultrasound evidence for acute DVT in the left lower extremity.
== END | disposition home or self-care (01) ==
LOC: RADUSWWP 16:13
PROVIDERS: ATTEND Orthopaedic Surgery
DX: M25.562 Pain in left knee (principal); M17.12 Unilateral primary osteoarthritis, left knee; M25.462 Effusion, left knee; I80.9 Phlebitis and thrombophlebitis of unspecified site

== ENCOUNTER 2020-03-23 13:40 | Emergency (ER) | payer MEDICARE ==
[2020-03-23 13:59] VITALS: BP 163/85; PULSE 77; RESP 16; TEMP 98.5
[2020-03-23] MEDS ORDERED: cefTRIAXone 1,000 MG VIAL (IM USE) IM STA (14:42)
[2020-03-23] MEDS ORDERED: predniSONE 50 MG TAB PO STA (14:43)
--- NOTE | 2020-03-23 14:43 | ED ---
ENT HPI - General Chief complaint: ENT Stated complaint: Eye pain Time Seen by Provider: 03/23/20 14:25 Source: patient, RN notes reviewed Mode of arrival: ambulatory Limitations: no limitations - History of Present Illness Initial comments: 55-year-old female presents emergency Department chief complaint of possible medication reaction. Patient is currently being treated for a stye with surrounding infection. Patient was placed on ciprofloxacin eyedrops states it was improving but was placed on doxycycline states that she's had worsening symptoms since surgery and doxycycline. No fevers or chills. Patient has sinus congestion. No fever headache neck pain neck stiffness chest pain or cough congestion. - Related Data Home Medications Medication Instructions Recorded Confirmed cloNIDine HCL 0.3 mg PO TID 08/19/15 03/23/20 Morphine Sulfate ER [Ms Contin] 15 mg PO HS 03/09/18 03/23/20 hydroCHLOROthiazide [Hydrodiuril] 50 mg PO DAILY 03/09/18 03/23/20 oxyCODONE-APAP 10-325MG [Percocet 1 tab PO Q4H PRN 03/09/18 03/23/20 10-325 mg] Cetirizine HCl [Zyrtec] 10 mg PO DAILY 03/23/20 03/23/20 Cyanocobalamin (Vitamin B-12) 1,000 mcg PO DAILY 03/23/20 03/23/20 [Vitamin B-12] Doxycycline Hyclate [Vibramycin] 100 mg PO BID 03/23/20 03/23/20 EPINEPHrine [Epipen 2-Eder] 0.3 mg IJ ONCE PRN 03/23/20 03/23/20 Sertraline [Zoloft] 50 mg PO DAILY 03/23/20 03/23/20 Previous Rx's Medication Instructions Recorded Cephalexin [Keflex] 500 mg PO Q6HR #28 cap 03/23/20 Allergies Allergy/AdvReac Type Severity Reaction Status Date / Time erythromycin base Allergy Rash/Hives Verified 03/23/20 14:50 [Erythromycin Base] Penicillins Allergy Rash/Hives Verified 03/23/20 14:50 Review of Systems ROS Statement: Those systems with pertinent positive or pertinent negative responses have been documented in the HPI. ROS Other: All systems not noted in ROS Statement are negative. Past Medical History Past Medical History: Cancer, Hypertension Additional Past Medical History / Comment(s): past migraines, chronic back pain, hx uterine cancer, small hiatal hernia(per egd)colon polyp removal, diverticulitis, meniscus tears History of Any Multi-Drug Resistant Organisms: C-DIFF Date of last positivie culture/infection: 2014 MDRO Source:: stool Past Surgical History: Adenoidectomy, Appendectomy, Section, Cholecystectomy, Hysterectomy, Orthopedic Surgery, Tonsillectomy Additional Past Surgical History / Comment(s): bilateral saliphingooophtomy; Laser eye surgery, right knee surgery, egd, colonoscopy/polypectomy Past Anesthesia/Blood Transfusion Reactions: Postoperative Nausea & Vomiting (PONV) Past Psychological History: Anxiety, Depression, Panic Disorder, PTSD Smoking Status: Former smoker Past Alcohol Use History: None Reported Past Drug Use History: None Reported - Past Family History Father Family Medical History: Cancer Additional Family Medical History / Comment(s): Father from complications of agent orange exposure. Mother Family Medical History: CVA/TIA Additional Family Medical History / Comment(s): Mother is alive at age 85 with history of hypertension and stroke. Brother(s) Family Medical History: No Reported History (Patient has 3 brothers with diagnosis of small bowel obstruction.) Additional Family Medical History / Comment(s): Patient has total of 3 brothers and one is been diagnosed with small bowel obstruction. Sister(s) Family Medical History: No Reported History (One sister no major medical problems.) Additional Family Medical History / Comment(s): Patient has 1 sister with no major medical problems. General Exam Limitations: no limitations General appearance: alert, in no apparent distress Head exam: Present: atraumatic, normocephalic, normal inspection Eye exam: Present: PERRL, EOMI. Absent: normal appearance (2 styes on on the left one on the right), scleral icterus, conjunctival injection, periorbital swelling ENT exam: Present: normal exam, normal oropharynx, mucous membranes moist Neck exam: Present: normal inspection, full ROM. Absent: tenderness, m eningismus, lymphadenopathy Respiratory exam: Present: normal lung sounds bilaterally. Absent: respiratory distress, wheezes, rales, rhonchi, stridor Cardiovascular Exam: Present: regular rate, normal rhythm, normal heart sounds. Absent: systolic murmur, diastolic murmur, rubs, gallop, clicks Course Vital Signs 03/23/20 13:53 Temperature 98.5 F Pulse Rate 77 Respiratory 16 Rate Blood Pressure 163/85 O2 Sat by Pulse 95 Oximetry Medical Decision Making - Medical Decision Making Patient has medication reaction, antibiotics will be switched. Patient has no concerning evidence of periorbital cellulitis. Patient we discharged supination with follow-up with ENT if symptoms persist. Disposition Clinical Impression: Hordeolum external, Hordeolum eyelid, internal, Medication reaction, Cellulitis Disposition: HOME SELF-CARE Condition: Stable Instructions (If sedation given, give patient instructions): Go (ED) Additional Instructions: Please return to the Emergency Department if symptoms worsen or any other concerns. Prescriptions: Cephalexin [Keflex] 500 mg PO Q6HR #28 cap Is patient prescribed a controlled substance at d/c from ED?: No Referrals: Aroldo Dash MD [Primary Care Provider] - 1-2 days Time of Disposition: 14:43
== END 2020-03-23 15:36 | disposition home or self-care (01) ==
LOC: EC 13:40
DX: H00.019 Hordeolum externum unspecified eye, unspecified eyelid (principal); H00.029 Hordeolum internum unspecified eye, unspecified eyelid; L03.213 Periorbital cellulitis; T50.905A Adverse effect of unspecified drugs, medicaments and biological substances, initial encounter; F41.0 Panic disorder [episodic paroxysmal anxiety]; F32.9 Major depressive disorder, single episode, unspecified; F43.10 Post-traumatic stress disorder, unspecified; I10 Essential (primary) hypertension; G43.909 Migraine, unspecified, not intractable, without status migrainosus; G89.29 Other chronic pain; M54.9 Dorsalgia, unspecified; Z79.891 Long term (current) use of opiate analgesic; Z79.899 Other long term (current) drug therapy; Z87.891 Personal history of nicotine dependence; Z88.1 Allergy status to other antibiotic agents; Z88.0 Allergy status to penicillin; Z85.42 Personal history of malignant neoplasm of other parts of uterus
CPT/HCPCS: 96372 ×2; 99283 ×2; J0696; J7512

== ENCOUNTER 2020-11-04 12:23 | Emergency (ER) | payer MEDICARE ==
[2020-11-04 12:49] VITALS: BP 168/80; PULSE 83; RESP 20; TEMP 98.1
--- NOTE | 2020-11-04 14:32 | CT ---
EXAMINATION TYPE: CT sinus wo con DATE OF EXAM: 11/04/2020 COMPARISON: None HISTORY: recurring sinus infections x6 months CT DLP: 364.3 mGycm CONTRAST: 0 mL of Isovue 300 The paranasal sinuses are examined in the axial plane at 2 mm thick sections. Reconstructed images i n the coronal plane were obtained. The maxillary sinuses are clear. Minimal mucosal thickening within the mid right ethmoid air cell. The sphenoid sinuses are clear. The frontal sinuses are clear. No significant mucosal thickening is evident. No suspicious air-fluid levels or differential air-fluid levels are evident. No septal dest ruction is evident. Mastoid air cells are clear. The septum is evaluated. There is septal deviation to the right. The ostiomeatal units are patent. Maxillary spine is intact. Nasal bridge is unremarkable. Zygomatic arches and greater wings of spheno id are normal. IMPRESSIONS: 1. Single small area of opacification within the mid right ethmoid air cell. 2. Paranasal sinuses are otherwise unremarkable.
--- NOTE | 2020-11-04 14:49 | ED ---
Recheck HPI - General Chief Complaint: Recheck/Abnormal Lab/Rx Stated Complaint: congestion, eye problems Time Seen by Provider: 11/04/20 12:56 Source: patient Mode of arrival: ambulatory Limitations: no limitations - History of Present Illness Initial Comments: Patient is a 55-year-old female presenting to the emergency Department with complaints of recurring sinus infection over the past 6 months. She states she came here in the past in March for same complaint. She is also followed up with her doctor and urgent care clinics over the past few months as well. She is currently on clindamycin as well as tobramycin eyedrops. She states from the sinus infection that she developed styes which happens in both of her eyes. She states she feels like one of us are in her left eye. She has not been able to get into an ENT yet. She states the next available appointment is not for 3 months. Denies any fevers or chills, no headache, no blurry vision. She states she does have a little bit of sinus pressure but states that his been typical over the past 6 months. She has no further complaints. - Related Data Home Medications Medication Instructions Recorded Confirmed cloNIDine HCL [Catapres] 0.3 mg PO TID 08/19/15 03/23/20 Morphine Sulfate ER [Ms Contin] 15 mg PO HS 03/09/18 03/23/20 hydroCHLOROthiazide [Hydrodiuril] 50 mg PO DAILY 03/09/18 03/23/20 oxyCODONE-APAP 10-325MG [Percocet 1 tab PO Q4H PRN 03/09/18 03/23/20 10-325 mg] Cetirizine HCl [Zyrtec] 10 mg PO DAILY 03/23/20 03/23/20 Cyanocobalamin (Vitamin B-12) 1,000 mcg PO DAILY 03/23/20 03/23/20 [Vitamin B-12] Doxycycline Hyclate [Vibramycin] 100 mg PO BID 03/23/20 03/23/20 EPINEPHrine [Epipen 2-Eder] 0.3 mg IJ ONCE PRN 03/23/20 03/23/20 Sertraline [Zoloft] 50 mg PO DAILY 03/23/20 03/23/20 Previous Rx's Medication Instructions Recorded Cephalexin [Keflex] 500 mg PO Q6HR #28 cap 11/04/20 Allergies Allergy/AdvReac Type Severity Reaction Status Date / Time erythromycin base Allergy Rash/Hives Verified 11/04/20 12:45 [Erythromycin Base] Penicillins Allergy Rash/Hives Verified 11/04/20 12:45 Review of Systems ROS Statement: Those systems with pertinent positive or pertinent negative responses have been documented in the HPI. ROS Other: All systems not noted in ROS Statement are negative. Past Medical History Past Medical History: Cancer, Hypertension Additional Past Medical History / Comment(s): past migraines, chronic back pain, hx uterine cancer, small hiatal hernia(per egd)colon polyp removal, diverticulitis, meniscus tears History of Any Multi-Drug Resistant Organisms: C-DIFF Date of last positivie culture/infection: 2014 MDRO Source:: stool Past Surgical History: Adenoidectomy, Appendectomy, Section, Cholecystectomy, Hysterectomy, Orthopedic Surgery, Tonsillectomy Additional Past Surgical History / Comment(s): bilateral saliphingooophtomy; Laser eye surgery, right knee surgery, egd, colonoscopy/polypectomy Past Anesthesia/Blood Transfusion Reactions: Postoperative Nausea & Vomiting (PONV) Past Psychological History: Anxiety, Depression, Panic Disorder, PTSD Smoking Status: Former smoker Past Alcohol Use History: None Reported Past Drug Use History: None Reported - Past Family History Father Family Medical History: Cancer Additional Family Medical History / Comment(s): Father from complications of agent orange exposure. Mother Family Medical History: CVA/TIA Additional Family Medical History / Comment(s): Mother is alive at age 85 with history of hypertension and stroke. Brother(s) Family Medical History: No Reported History (Patient has 3 brothers with diagnosis of small bowel obstruction.) Additional Family Medical History / Comment(s): Patient has total of 3 brothers and one is been diagnosed with small bowel obstruction. Sister(s) Family Medical History: No Reported History (One sister no major medical problems.) Additional Family Medical History / Comment(s): Patient has 1 sister with no major medical problems. General Exam - General Exam Comments Initial Comments: GENERAL: Patient is well-developed and well-nourished. Patient is nontoxic and in no acute distress. HEAD: Atraumatic, normocephalic. EYES: Pupils equal round and reactive to light, extraocular movements intact, sclera anicteric, conjunctiva are normal. Eyelids were unremarkable. ENT: TMs normal, nares patent, oropharynx clear without exudates. Moist mucous membranes. Mild discomfort noted over bilateral maxillary sinuses. NECK: Normal range of motion, supple without lymphadenopathy or JVD. LUNGS: Unlabored respirations. Breath sounds clear to auscultation bilaterally and equal. No wheezes rales or rhonchi. HEART: Regular rate and rhythm without murmurs, rubs or gallops. ABDOMEN: Soft, nontender, normoactive bowel sounds. No guarding, no rebound. No masses appreciated. : Deferred MUSCULOSKELETAL: Normal extremities with adequate strength and normal range of motion, no pitting or edema. No clubbing or cyanosis. NEUROLOGICAL: Patient is alert and oriented x 3. SKIN: Warm, Dry, normal turgor, no rashes or lesions noted. Limitations: no limitations Course Vital Signs 11/04/20 12:45 Temperature 98.1 F Pulse Rate 83 Respiratory 20 Rate Blood Pressure 168/80 O2 Sat by Pulse 96 Oximetry Medical Decision Making - Medical Decision Making Patient is a 55-year-old female here with chronic bilateral sinus pain and recurring size in her eyes. She is currently in clindamycin and tobramycin eyedrops. She has yet to see an ENT for this. I did do a CT of her sinuses today which revealed A single small area of thickening in the right mid ethmoid air cell, no other acute abnormalities. Discussed findings the patient. She is requesting a change of oral antibiotics, will give her Keflex, she can continue with the tobramycin eyedrops. I will give her ENT referral. She is in agreement with this plan of care and is stable for discharge. Case discussed with Dr. Walker. Disposition Clinical Impression: Chronic pain, Sinus pain Disposition: HOME SELF-CARE Condition: Stable Instructions (If sedation given, give patient instructions): Sinusitis (ED) Additional Instructions: Please return to the Emergency Department if symptoms worsen or any other concerns. Trial of Keflex for your symptoms. Continue with tobramycin eyedrops as prescribed. Follow up with ENT. Prescriptions: Cephalexin [Keflex] 500 mg PO Q6HR #28 cap Is patient prescribed a controlled substance at d/c from ED?: No Referrals: Aroldo Dash MD [Primary Care Provider] - 1-2 days Merrill Floyd DO [Doctor of Osteopathic Medicine] - 1-2 days Time of Disposition: 14:49
== END 2020-11-04 15:07 | disposition home or self-care (01) ==
LOC: EC 12:23
DX: G89.29 Other chronic pain (principal); J34.89 Other specified disorders of nose and nasal sinuses; I10 Essential (primary) hypertension; F32.9 Major depressive disorder, single episode, unspecified; F41.9 Anxiety disorder, unspecified; Z87.891 Personal history of nicotine dependence; Z79.899 Other long term (current) drug therapy
CPT/HCPCS: 70486; 99283

== ENCOUNTER → 2022-02-02 | Outpatient (CLI) | payer MEDICARE ==
[2022-02-02 16:08] LABS: African American GFR (CKD) 89 (>60 ml/min/1.73 sqM); Anion Gap 11 mmol/L; Blood Urea Nitrogen 13 mg/dL (7-17); Calcium 9.8 mg/dL (8.4-10.2); Carbon Dioxide 31 mmol/L (22-30); Chloride 99 mmol/L (98-107); Glucose 157 mg/dL (74-99); Non-African American GFR(CKD) 77 (>60 ml/min/1.73 sqM); Potassium 3.1 mmol/L (3.5-5.1); Sodium 141 mmol/L (137-145)
--- NOTE | 2022-02-03 07:34 | XR ---
EXAMINATION TYPE: XR lumbosacral spine min 4V DATE OF EXAM: 02/02/2022 CLINICAL HISTORY: DDD and DJD. Chronic back pain. TECHNIQUE: Frontal, lateral, and oblique images of the lumbar spine are obtained. COMPARISON: MRI lumbar spine 2012 FINDINGS: There are 5 lumbar type vertebral bodies identified. There is dextroconvex scoliosis cente red at L3 level. Vertebral body heights are maintained. Mild to moderate disc space narrowing L5-S1 l evel. Mild disc space narrowing with moderate anterior spurring at L1-L2 level. Mild to moderate mult ilevel anterior and lateral spurring. The oblique images appear within normal limits. Cholecystecto my clips are present. IMPRESSION: Evidence above.
== END | disposition home or self-care (01) ==
LOC: LABWHC1 15:11
PROVIDERS: ATTEND Pain Medicine Interventional Pain Medicine
DX: G89.29 Other chronic pain (principal); M51.26 Other intervertebral disc displacement, lumbar region; M54.31 Sciatica, right side; M51.36 Other intervertebral disc degeneration, lumbar region
CPT/HCPCS: 36415; 72110; 80048

== ENCOUNTER → 2023-09-01 | Outpatient (CLI) | payer MEDICARE ==
--- NOTE | 2023-09-04 18:53 | MM ---
Reason for Exam: Screening (asymptomatic). Last mammogram was performed 4 year(s) and 4 month(s) ago. Patient History: Menarche at age 9. First Full-Term at age 27. Left ovary removed at age 31. Right ovary removed at age 31. Hysterectomy at age 31. Postmenopausal. Ovarian cancer, age 31. 2009, Benign Excisional Biopsy on the left side. Risk Values: Chikis 5 year model risk: 2.0%. NCI Lifetime model risk: 10.7%. Prior Study Comparison: 11/11/2011 Screening Mammogram, [facility]. 02/12/2015 Screening Mammogram, [facility]. 04/15/2019 Bilateral Screening Mammogram, [facility]. Tissue Density: There are scattered areas of fibroglandular density. Findings: Analyzed By CAD. Microclip left breast from prior biopsy. Areas of asymmetric density are unchanged. There is no suspicious group of microcalcifications or new suspicious mass in either breast. Overall Assessment: Benign, BI-RAD 2 Management: Screening Mammogram of both breasts in 1 year. . Patient should continue monthly self-breast exams. A clinical breast exam by your physician is recommended on an annual basis. This exam should not preclude additional follow-up of suspicious palpable abnormalities. Note on Chikis scores and lifetime risk: 1. A Chikis score greater than 3% is considered moderate risk. If this is the case, consider specialist referral to assess eligibility for a risk reducing agent. 2. If overall lifetime risk for the development of breast cancer is 20% or higher, the patient may qualify for future screening with alternating mammogram and breast MRI. Electronically signed and approved by: Radhika Lanza M.D. Radiologist
== END | disposition home or self-care (01) ==
LOC: RADMAMWWP 08:47
PROVIDERS: ATTEND Family Medicine
DX: Z12.31 Encounter for screening mammogram for malignant neoplasm of breast (principal); Z78.0 Asymptomatic menopausal state
CPT/HCPCS: 77063; 77067